=== PATIENT | female | born 1930 | race Caucasian/White ===

== ENCOUNTER 2018-07-16 20:24 | Inpatient (IN) ==
--- NOTE | 2018-07-16 21:34 | XRay Report ---
XR femur RT 2V routine CLINICAL HISTORY: Right thigh pain following fall. COMPARISON: None FINDINGS: Note is made of an acute nondisplaced fracture of the right femur. Fracture is subtrochant sacha in location and may extend into the lesser trochanter. No displaced component is identified. The re is no distal right femoral fracture. There is extensive vascular calcification. 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 There is patellofemoral c ompartment joint space narrowing. 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 IMPRESSION: Acute nondisplaced subtrochanteric fracture of the right femur that likely extends into t he lesser trochanter and through the femur. Electronically signed by: Seun Post M.D. 07/16/2018 9:33 PM
[2018-07-16] MEDS ORDERED: SODIUM CHLORIDE 0.9% 1000ML 1,000 ML IV SCH (22:00)
[2018-07-16 22:33] LABS: Basophils # (auto) 0.05 K/uL (0-0.2); Basophils % (auto) 0.5 %; Eosinophils # (auto) 0.06 K/uL (0-0.5); Eosinophils % (auto) 0.6 %; Hematocrit (blood only) 34.1 % (37-47); Hemoglobin 11.5 g/dL (12.0-16.0); Immature Granulocytes # (auto) 0.02 K/uL (0.00-0.02); Immature Granulocytes % (auto) 0.2 %; Lymphocytes # (auto) 1.11 K/uL (1.2-3.4); Lymphocytes % (auto) 10.5 %; Mean Corpuscular Hgb Conc 33.7 g/dL (32-36); Mean Corpuscular Volume 96.1 fL (80-100); Mean Platelet Volume 9.8 fL (7.4-10.4); Monocytes # (auto) 0.73 K/uL (0.11-0.59); Monocytes % (auto) 6.9 %; Neutrophils # (auto) 8.58 K/uL (1.4-6.5); Neutrophils % (auto) 81.3 %; Platelet Count 246 K/uL (130-400); RDW Coefficient of Variation 14.4 % (11.5-14.5); RDW Standard Deviation 51.3 fL (36.4-46.3); Red Blood Count 3.55 M/uL (4.2-5.4); White Blood Count 10.55 K/uL (4.8-10.8)
[2018-07-16 22:43] LABS: Partial Thromboplastin Ratio 0.9; Partial Thromboplastin Time 23.1 Seconds (21.0-31.0); Prothrombin Time 10.6 Seconds (9.0-12.0)
[2018-07-16 22:49] LABS: Calcium 9.1 mg/dl (8.5-10.1); Creatinine Clr Calc Pharmacy 32.4 ml/min; Est GFR (African American) 68.5; Est GFR (Non-African American) 59.1; Potassium 3.9 mmol/L (3.5-5.1)
--- NOTE | 2018-07-16 22:53 | XRay Report ---
XR chest 1V portable CLINICAL HISTORY: fall COMPARISON STUDY: No previous studies for comparison. FINDINGS: There is S-shaped scoliosis of the thoracolumbar spine. Mild cardiomegaly is noted without evidence for pulmonary edema. There is no consolidation. No pneumothorax or pleural effusion is noted . IMPRESSION: No acute cardiopulmonary findings. Electronically signed by: Seun Post M.D. 07/16/2018 10:51 PM
--- NOTE | 2018-07-16 22:55 | XRay Report ---
XR pelvis 1-2V routine CLINICAL HISTORY: fall COMPARISON: Right femur radiographs performed earlier tonight. FINDINGS: Note is again made of an acute nondisplaced subtrochanteric fracture of the right femur th at extends through the lesser trochanter. There is no acute proximal left femoral fracture. Sacroilia c joints and symphysis pubis are intact. Equivocal nondisplaced fractures of the left superior and in ferior pubic rami are noted. IMPRESSION: 1. Acute nondisplaced subtrochanteric fracture of the right femur that also extends through the lesse r trochanter. 2. Equivocal acute nondisplaced left inferior and superior pubic rami fractures. Electronically signed by: Seun Post M.D. 07/16/2018 10:54 PM
[2018-07-16 23:24] LABS: Appearance Urine Clear (Clear); Bilirubin Urine Negative (Negative); Blood Urine Negative (Negative); Color Urine Yellow; Glucose Urine UA Negative (Negative); Ketones Urine Trace (Negative); Leukocyte Esterase Urine Negative (Negative); Nitrite Urine Negative (Negative); Protein Urine Negative (Negative); Specific Gravity Urine 1.019 (1.000-1.030); Urobilinogen Urine Negative (Negative); pH Urine 5.5 (4.5-7.5)
[2018-07-16] MEDS ORDERED: SOD PHOSPHATE/SOD BIPHOSPHATE ENEMA 132 ML BTL PR PRN (23:37)
[2018-07-16] MEDS ORDERED: BISACODYL 10 MG SUPP PR PRN (23:37)
[2018-07-16] MEDS ORDERED: NALOXONE HCL 0.4 MG/1 ML VIAL/CARP IV PRN (23:37)
[2018-07-16] MEDS ORDERED: MAGNESIUM HYDROXIDE SUSP 30 ML UDC PO PRN (23:37)
[2018-07-16] MEDS ORDERED: ACETAMINOPHEN 325 MG TAB PO PRN (23:38)
[2018-07-16] MEDS ORDERED: POLYETHYLENE (MIRALAX) 17 GM PACK PO PRN (23:38)
[2018-07-16] MEDS ORDERED: ALUMINUM/MAGNESIUM SUSP 30 ML UDC PO PRN (23:38)
[2018-07-16] MEDS ORDERED: ONDANSETRON INJ 2 MG/ML 2 ML VIAL IV PRN (23:38)
[2018-07-16] MEDS ORDERED: OXYCODONE HCL IR 5 MG TAB (IMMEDIATE RELEASE) PO PRN (23:38)
[2018-07-16] MEDS ORDERED: MoRPHine SULFATE 4 MG/ML 1 ML CARP\\VIAL IV PRN (23:38)
--- NOTE | 2018-07-17 00:08 | History & Physical Report ---
Date of Service July 17, 2018 Assessment & Plan (1) Closed fracture of right hip: 88 y/o F who denies a significant history and does not take any medications. Presents following a mechanical fall onto her right side. Imaging obtained in the ER demonstrated an acute nondisplaced, subtrochanteric fracture of the right femur that also extends through the lesser trochanter and possibly acute nondisplaced left inferior and superior pubic rami fractures. The pt denies any symptoms preceding her fall such as lightheadedness or palpitations. The pt si admitted with a hip fracture protocol and will be evaluated by orthopedics - per history alone, her RCRI s 0.4%, however, she has a LBBB on EKG which has to be considered pathological until proven otherwise. We will therefore obtain an echo AM and if there are corresponding abnormalities, she would require evaluation by cardiology prior to proceeding to the OR. Additional assessment to follow results of her echocardiogram. Full code - SCDs Total time for this admit including review of labs, meds, imaging, records - discussion with pt and ER attending - 37 min Present on Admission?: Yes History of Present Illness Chief Complaint: Hp fracture Primary Care Provider: NO PCP 88 y/o F who denies a significant history and does not take any medications. Presents following a mechanical fall onto her right side. Imaging obtained in the ER demonstrated an acute nondisplaced, subtrochanteric fracture of the right femur that also extends through the lesser trochanter and possibly acute nondisplaced left inferior and superior pubic rami fractures. The pt denies any symptoms preceding her fall such as lightheadedness or palpitations. PMH: She denies a significant medical history - it is noted that she has a LBBB on EKG. Surgical: Cyst removal from breast Social: No history of smoking or drinking - she hails from [place] and is a graduate of [employer]. She is fully independent. Family: Father due to renal failure Mothers cause of is not known - history of dementia Allergies Allergy/AdvReac Type Severity Reaction Status Date / Time No Known Allergies Allergy Unverified 07/17/18 00:07 Home Medications Home Medications Medication Instructions Recorded Confirmed Type No Known Home Medications 07/17/18 07/17/18 History Past Med/Surg History Medical History Fall Family History Other Family history non-contributory Social History Feels Safe at Home: Yes Smoking Status: Never smoker Review of Systems Gen: Denies fevers, night sweats, rigors, fatigue, malaise, weight loss/gain ENT: Denies congestion, throat pain, hearing loss Eyes: Denies acute visual changes CV: Denies CP, palpitations Pulmonary: Denies SOB, cough, wheezing GI: Denies N/V, diarrhea, constipation Neuro: Denies acute or unilateral weakness, acute gait impairment, headache or acute visual changes Musculoskeletal: Pain in R hip and pelvis Endocrine: Denies polydipsia, polyuria Skin: Denies acute rashes or ulcers Physical Exam Vital Signs (Past 24 Hours): Last Vital Signs Temp 36.6 C 07/16/18 20:38 Pulse 83 07/16/18 22:56 Resp 18 07/16/18 22:56 BP 163/74 H 07/16/18 22:56 Pulse Ox 97 07/16/18 22:56 Physical Exam: General: AAO x 3, no distress ENT: No erythema or exudates, no thrush Eyes: BEN, EOMI Head and neck: Normocephalic, atraumatic, No JVD, neck is supple. Chest/heart: Nontender, S1,2, RRR, no murmurs, no gallops Lungs: CTAB, no wheezing or crackles Abdomen: Nontender, nondistended, BS+ Neuro: AAO x 3, speech is clear, no unilateral weakness or loss of sensation, coordination intact Musculoskeletal: Did not palpate the hip considering the imaging Skin: No acute rashes or ulcers Extremities: No clubbing, cyanosis, edema - pulses + (1) Closed fracture of right hip Encounter type: initial encounter Qualified Code(s): S72.001A - Fracture of unspecified part of neck of right femur, initial encounter for closed fracture
[2018-07-17] MEDS: D5W AND LACTATED RINGERS 1,000 ML IV SCH ×2 (01:39→17:15)
--- NOTE | 2018-07-17 02:01 | Emergency Department Note ---
Entered by Dima Forte acting as a scribe for Sachin Cho History of Present Illness General Chief complaint: Fall Time Seen by Provider: 07/16/18 21:41 Source: patient History of Present Illness Provider complaint: Fall Onset (ago): hour(s) (This afternoon) Location: lower extremity and right Radiation: non-radiation Pain Consistency: + constant Maximum Pain Intensity: 8 Relieved By: + none Associated symptoms: + denies other symptoms The patient is an 88 year old female who presents to the Emergency Room with complaints of constant right thigh pain following a mechanical fall that occurred this afternoon. Per the nursing note she rates the pain an 8/10. She states she was walking into her house when she made a misstep and her walking cane got stuck causing her to lose her balance and fall. She denies any loss of consciousness or head trauma. She also denies any other pain besides her right thigh pain. The patient is not on any blood thinners. Home Medications Home Medications Medication Instructions Recorded Confirmed Type No Known Home Medications 07/17/18 07/17/18 History Allergies Allergy/AdvReac Type Severity Reaction Status Date / Time No Known Allergies Allergy Unverified 07/17/18 00:07 Past Med/Surg History Medical History Fall Family History Other Family history non-contributory Social History Preferred Language: Spanish Communication Ability: Effective Crew Car Driver Required: No Beliefs That Will Affect Care: None Current Living Situation: Alone Other Information That Helps Us Care for You: No Feels Safe at Home: Yes Safety Concerns: Feels Safe At This Time Smoking Status: Never smoker Hx Alcohol Use: No Hx Substance Use: No Review of Systems See HPI for pertinent positives & negatives. and A total of 10 systems reviewed and were otherwise negative Physical Exam Vital Signs Vital Signs - 24 hr 07/16/18 20:38 07/16/18 22:56 07/17/18 00:24 Temperature 36.6 C Temperature Source Oral Sepsis Recent Fever Within 48 Hours No Sepsis New/Unexplained Change in Mental Status No Sepsis Action Taken by Nursing No Action Required Pulse Rate 90 Pulse Rate [Apical] 83 83 Respiratory Rate 18 18 18 Blood Pressure 192/79 H Blood Pressure [Right Arm] 163/74 H 157/69 H Blood Pressure Mean 116 Blood Pressure Mean [Right Arm] 103 98 Pulse Oximetry 95 97 97 Oxygen Delivery Method Room Air Room Air Room Air GENERAL: She is oriented to person, place, and time. She appears well-developed and well-nourished. She does not appear distressed. HENT: Exam performed. Head: Normocephalic and atraumatic. Right Ear: External ear normal. No mastoid tenderness. Left Ear: External ear normal. No mastoid tenderness. Mouth/Throat: The oropharynx is clear and moist. No trismus in the jaw. No dental abscesses or uvula swelling. No oropharyngeal exudate or tonsillar abscesses. EYES: Conjunctivae and EOM are normal. Pupils are equal, round, and reactive to light. Right eye exhibits no discharge. Left eye exhibits no discharge. No scleral icterus. NECK: Normal range of motion. Neck supple. No JVD present. No spinous process tenderness present. No carotid bruit present. No rigidity. No tracheal deviation and normal range of motion present. No Brudzinski's sign and no Kernig's sign noted. CV: Normal rate, regular rhythm, normal heart sounds and intact distal pulses. There is no peripheral edema. Palpable radial pulses bue. PULM/CHEST: Effort normal and breath sounds normal. No respiratory distress. No stridor. She has no wheezes. She has no rales. Chest Wall: She exhibits no tenderness. ABD: The abdomen is soft. Bowel sounds are normal. She has no distension. No mass is present. There is no tenderness. There is no rebound, no guarding, no Robbins's sign and no tenderness at McBurney's point. Rovsig negative MUSC/SKEL: There is no peripheral edema or deformity. Pain on palpation of the right femur. LYMPH: No cervical adenopathy. NEURO: She is alert and oriented to person, place, and time. No cranial nerve deficit or sensory deficit. GCS eye subscore is 4. GCS verbal subscore is 5. GCS motor subscore is 6. SKIN: Skin is warm and dry. She is not diaphoretic. PSYCH: She has a normal mood and affect. Her behavior is normal. Judgment and thought content normal. Procedures FAST Exam FAST Exam 1: Fluid in Morison's pouch: No Fluid in [place]en[place]: No Fluid around bladder, Transverse view: No Fluid around bladder, Sagittal view: No Fluid in Pericardial Sac: No Gross Wall Motion Abnormality: No Study normal for this patient: Yes Course 2149: Past medical records reviewed. The patient was evaluated in room C12B, and a complete history and physical examination were performed. 2325: Labs within normal limits. Imaging showed a subtrochanteric fracture of right femur and left sided pubic rami fracture. CT head was negative. Friends at bedside requesting she be seen by Dr. Hinds for orthopedics. I spoke to Dr. Gusman [facility] Hospitalist about the patient's case and he is going to accept her for further evaluation. Consultations Consultation #1: I spoke to Dr. Gusman [facility] Hospitalist about the patient's case and he is going to accept her for further evaluation. Time: 23:30 Administered Medications Acetaminophen (Tylenol) 650 mg PO Q6H PRN PRN Reason: MILD Pain (Scale 1,2,3) Stop: 08/15/18 23:37 Last Admin: 07/17/18 01:38 Dose: 650 mg Documented by: [id number] Sodium Chloride (Nss 1000ml) 1,000 mls @ 75 mls/hr IV .[id number] BOONE Stop: 07/17/18 11:19 Last Infusion: 07/17/18 01:39 Dose: 0 mls/hr Documented by: [id number] Admin: 07/17/18 00:15 Dose: 75 mls/hr Documented by: [id number] Dextrose/Lactated Ringer's (D5w And Lactated Ringers) 1,000 mls @ 80 mls/hr IV .[id number] BOONE Stop: 07/18/18 00:44 Last Admin: 07/17/18 01:39 Dose: 80 mls/hr Documented by: [id number] Medical Decision Making Medical Records Attestation: I reviewed the patient's medical records. Home Medications Current Medication List: was personally reviewed by me Laboratory Data Attestation: I reviewed the patient's lab results. Result diagrams: 07/16/18 22:17 07/16/18 22:17 Lab Results 07/16/18 07/16/18 07/16/18 Range/Units 22:17 22:17 22:17 WBC 10.55 (4.8-10.8) K/uL RBC 3.55 L (4.2-5.4) M/uL Hgb 11.5 L (12.0-16.0) g/dL Hct 34.1 L (37-47) % MCV 96.1 (80-100) fL MCH 32.4 (25-34) pg MCHC 33.7 (32-36) g/dL RDW Std Deviation 51.3 H (36.4-46.3) fL RDW Coeff of Simon 14.4 (11.5-14.5) % Plt Count 246 (130-400) K/uL MPV 9.8 (7.4-10.4) fL Immature Gran % (Auto) 0.2 % Neut % (Auto) 81.3 % Lymph % (Auto) 10.5 % Montgomery % (Auto) 6.9 % Eos % (Auto) 0.6 % Baso % (Auto) 0.5 % Immature Gran # (Auto) 0.02 (0.00-0.02) K/uL Neut # (Auto) 8.58 H (1.4-6.5) K/uL Lymph # (Auto) 1.11 L (1.2-3.4) K/uL Montgomery # (Auto) 0.73 H (0.11-0.59) K/uL Eos # (Auto) 0.06 (0-0.5) K/uL Baso # (Auto) 0.05 (0-0.2) K/uL PT 10.6 (9.0-12.0) Seconds INR 1.0 (0.9-1.1) APTT 23.1 (21.0-31.0) Seconds PTT Ratio 0.9 Sodium 140 (136-145) mmol/L Potassium 3.9 (3.5-5.1) mmol/L Chloride 107 (98-107) mmol/L Carbon Dioxide 28 (21-32) mmol/L Anion Gap 5.0 (3-11) BUN 20 H (7-18) mg/dl Creatinine 0.88 (0.6-1.2) mg/dl Est Cr Clr Drug Dosing 32.4 ml/min Est GFR ( Amer) 68.5 Est GFR (Non-Af Amer) 59.1 BUN/Creatinine Ratio 23.0 H (10-20) Glucose 133 H (70-99) mg/dl Calcium 9.1 (8.5-10.1) mg/dl Urine Color Urine Appearance (Clear) Urine pH (4.5-7.5) Ur Specific [place] (1.000-1.030) Urine Protein (Negative) Urine Glucose (UA) (Negative) Urine Ketones (Negative) Urine Blood (Negative) Urine Nitrite (Negative) Urine Bilirubin (Negative) Urine Urobilinogen (Negative) Ur Leukocyte Esterase (Negative) Blood Type Antibody Screen 07/16/18 07/16/18 Range/Units 22:17 22:54 WBC (4.8-10.8) K/uL RBC (4.2-5.4) M/uL Hgb (12.0-16.0) g/dL Hct (37-47) % MCV (80-100) fL MCH (25-34) pg MCHC (32-36) g/dL RDW Std Deviation (36.4-46.3) fL RDW Coeff of Simon (11.5-14.5) % Plt Count (130-400) K/uL MPV (7.4-10.4) fL Immature Gran % (Auto) % Neut % (Auto) % Lymph % (Auto) % Montgomery % (Auto) % Eos % (Auto) % Baso % (Auto) % Immature Gran # (Auto) (0.00-0.02) K/uL Neut # (Auto) (1.4-6.5) K/uL Lymph # (Auto) (1.2-3.4) K/uL Montgomery # (Auto) (0.11-0.59) K/uL Eos # (Auto) (0-0.5) K/uL Baso # (Auto) (0-0.2) K/uL PT (9.0-12.0) Seconds INR (0.9-1.1) APTT (21.0-31.0) Seconds PTT Ratio Sodium (136-145) mmol/L Potassium (3.5-5.1) mmol/L Chloride (98-107) mmol/L Carbon Dioxide (21-32) mmol/L Anion Gap (3-11) BUN (7-18) mg/dl Creatinine (0.6-1.2) mg/dl Est Cr Clr Drug Dosing ml/min Est GFR ( Amer) Est GFR (Non-Af Amer) BUN/Creatinine Ratio (10-20) Glucose (70-99) mg/dl Calcium (8.5-10.1) mg/dl Urine Color Yellow Urine Appearance Clear (Clear) Urine pH 5.5 (4.5-7.5) Ur Specific [place] 1.019 (1.000-1.030) Urine Protein Negative (Negative) Urine Glucose (UA) Negative (Negative) Urine Ketones Trace H (Negative) Urine Blood Negative (Negative) Urine Nitrite Negative (Negative) Urine Bilirubin Negative (Negative) Urine Urobilinogen Negative (Negative) Ur Leukocyte Esterase Negative (Negative) Blood Type A Negative Antibody Screen NEGATIVE Imaging Data Radiologist's Impression: Radiology results as stated below per my review and the radiologist's interpretation: XR chest 1V portable CLINICAL HISTORY: fall COMPARISON STUDY: No previous studies for comparison. FINDINGS: There is S-shaped scoliosis of the thoracolumbar spine. Mild cardiomegaly is noted without evidence for pulmonary edema. There is no consolidation. No pneumothorax or pleural effusion is noted. IMPRESSION: No acute cardiopulmonary findings. Electronically signed by: Seun Post M.D. 07/16/2018 10:51 PM XR pelvis 1-2V routine CLINICAL HISTORY: fall COMPARISON: Right femur radiographs performed earlier tonight. FINDINGS: Note is again made of an acute nondisplaced subtrochanteric fracture of the right femur that extends through the lesser trochanter. There is no acute proximal left femoral fracture. Sacroiliac joints and symphysis pubis are intact. Equivocal nondisplaced fractures of the left superior and inferior pubic rami are noted. IMPRESSION: 1. Acute nondisplaced subtrochanteric fracture of the right femur that also extends through the lesser trochanter. 2. Equivocal acute nondisplaced left inferior and superior pubic rami fractures. Electronically signed by: Seun Post M.D. 07/16/2018 10:54 PM XR femur RT 2V routine CLINICAL HISTORY: Right thigh pain following fall. COMPARISON: None FINDINGS: Note is made of an acute nondisplaced fracture of the right femur. Fracture is subtrochanteric in location and may extend into the lesser trochanter. No displaced component is identified. There is no distal right femoral fracture. There is extensive vascular calcification. There is chondrocalcinosis within the menisci of the right knee with moderate osteoarthritis. There is patellofemoral compartment joint space narrowing. 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 IMPRESSION: Acute nondisplaced subtrochanteric fracture of the right femur that likely extends into the lesser trochanter and through the femur. Electronically signed by: Seun Post M.D. 07/16/2018 9:[address] HEAD: No intracranial hemorrhage or skull fracture. Involutional changes with small vessel disease. Radiologist: Vernon Fox M.D. Study ready at 23:17 and initial results transmitted at 23:18 ECG Data Attestation: I personally reviewed and interpreted this ECG as follows: Indication: other (Fall) Rate (beats per minute): 85 Rhythm: normal sinus Findings: + other (IA 158, QRS 130, QTC 497, Sgarbosa negative, baseline wonder and artifact) and + LBBB Blood Pressure Blood Pressure Findings: Elevated blood pressure Blood Pressure Disposition: further management by hospitalist [facility] Narrative Labs within normal limits. Imaging showed a subtrochanteric fracture of right femur and left sided pubic rami fracture. CT head was negative. Friends at bedside requesting she be seen by Dr. Hinds for orthopedics. I spoke to Dr. Gusman - [facility] Hospitalist about the patient's case and he is going to accept her for further evaluation. Impression & Plan Closed fracture of right hip, Closed right femoral fracture Discharge Plan Visit Data *Final* Discharge Date/Time: 07/17/18 00:25 Chief Complaint: Fall ED Provider: Sachin Cho Discharge Problem: Closed fracture of right hip, Closed right femoral fracture Patient Disposition: Admitted As Inpatient Discharge Instructions Interventions: ED Discharge Assessment Last Done: 07/17/18 00:25 Discharge Problem: Closed fracture of right hip Qualifiers: Encounter type: initial encounter Qualified Code(s): S72.001A - Fracture of unspecified part of neck of right femur, initial encounter for closed fracture Closed right femoral fracture Qualifiers: Encounter type: initial encounter Femur location: subtrochanteric Fracture alignment: nondisplaced Qualified Code(s): S72.24XA - Nondisplaced subtrochanteric fracture of right femur, initial encounter for closed fracture The scribe's documentation has been prepared under my direction and personally reviewed by me in its entirety. I confirm that the note above accurately reflects all work, treatment, procedures, and medical decision making performed by me.
[2018-07-17] MEDS ORDERED: CEFAZOLIN 2000MG 2,000 MG/15 ML SYR IV SCH (06:00)
[2018-07-17] MEDS ORDERED: CEFAZOLIN 2000MG 2,000 MG/15 ML SYR IV ONE (06:11)
--- NOTE | 2018-07-17 07:01 | Anesthesiology Consultation ---
Date of Service July 17, 2018 Assessment & Plan (1) Encounter for pre-operative examination: Chart Review Chart Review: Pending: Refer to Additional Notes / Consult section and Patient NOT seen in Pre Admission Testing Patient found to have LBBB on EKG. Per hospitalist note upon admission last PM, it is pathologic until proven otherwise. Patient to have an echo done this morning prior to the OR. If echo fails to show any additional abnormalities, patient likely ok for surgery today. I spoke to the cardiopulmonary lab and asked that her echo be read first when the cardiologists arrive so we can take her to surgery as soon as possible. Consults Requested none NPO Date Last Intake of Fluids: 07/17/18 Time Last Intake of Fluids: 02:00 Last Intake of Fluids Comment: small sip with medications Date Last Intake of Solids: 07/16/18 History Surgery Operation Date: 07/17/18 07:00 Proposed Procedures p Intramedullary Yoni Femur Right - Artemio Leavitt MD Height/Weight Height: 5 ft 2 in Weight: 49.2 kg Allergies Allergy/AdvReac Type Severity Reaction Status Date / Time No Known Allergies Allergy Unverified 07/17/18 00:07 Medications Home Medications Medication Instructions Recorded Confirmed Last Taken No Known Home Medications 07/17/18 07/17/18 Unknown Active Medications Generic Name Dose Route Start Last Admin Trade Name Freq PRN Reason Stop Dose Admin Acetaminophen 650 mg 07/16/18 23:38 07/17/18 01:38 Tylenol PO 08/15/18 23:37 650 mg Q6H PRN Administration MILD Pain (Scale 1,2,3) Sodium Chloride 1,000 mls @ 75 mls/hr 07/16/18 22:00 07/17/18 01:39 Nss 1000ml IV 07/17/18 11:19 Infused .[id number] BOONE Infusion Dextrose/Lactated Ringer's 1,000 mls @ 80 mls/hr 07/16/18 23:45 07/17/18 05:35 D5w And Lactated Ringers IV 07/18/18 00:44 80 mls/hr .[id number] BOONE Infusion Past Medical History Medical History Fall Patient denies medical problems Scoliosis Past Family History Family History Other Family history non-contributory Past Surgical History Surgical History H/O removal of cyst breast cyst removal Social History Smoking Status: Never smoker Hx Alcohol Use: No Hx Substance Use: No Physical Exam Vital Signs Last Vital Signs Temp 36.7 C 07/17/18 01:30 Pulse 80 07/17/18 01:30 Resp 16 07/17/18 01:30 BP 167/94 H 07/17/18 01:30 Pulse Ox 99 07/17/18 01:30 Testing Electrocardiogram Date: 07/16/18 Findings: + NSR @ (85) and + LBBB Normal sinus rhythm Left bundle branch block Abnormal ECG No previous ECGs available Chest X-Ray Date: 07/16/18 COMPARISON STUDY: No previous studies for comparison. FINDINGS: There is S-shaped scoliosis of the thoracolumbar spine. Mild cardiomegaly is noted without evidence for pulmonary edema. There is no consolidation. No pneumothorax or pleural effusion is noted. IMPRESSION: No acute cardiopulmonary findings. Laboratory Results 07/16/18 22:17 07/16/18 22:17 Blood Type A Negative 07/16/18 22:17 Antibody Screen NEGATIVE 07/16/18 22:17 PT 10.6 Seconds (9.0-12.0) 07/16/18 22:17 INR 1.0 (0.9-1.1) 07/16/18 22:17 APTT 23.1 Seconds (21.0-31.0) 07/16/18 22:17 Urine Color Yellow 07/16/18 22:54 Urine Appearance Clear (Clear) 07/16/18 22:54 Urine pH 5.5 (4.5-7.5) 07/16/18 22:54 Ur Specific [place] 1.019 (1.000-1.030) 07/16/18 22:54 Urine Protein Negative (Negative) 07/16/18 22:54 Urine Glucose (UA) Negative (Negative) 07/16/18 22:54 Urine Ketones Trace (Negative) H 07/16/18 22:54 Urine Nitrite Negative (Negative) 07/16/18 22:54 Ur Leukocyte Esterase Negative (Negative) 07/16/18 22:54
--- NOTE | 2018-07-17 07:04 | CT Scan Report ---
HEAD CT NONCONTRAST CT DOSE: 614.27 mGy.cm HISTORY: fall TECHNIQUE: Multiaxial CT images of the head were performed without the use of intravenous contrast. A utomated exposure control was utilized for this study. A dose lowering technique was utilized adheri ng to the principles of ALARA. Comparison: None. Findings: The paranasal sinuses and mastoid air cells are clear. The calvarium and skull base are int act. There is no mass, hematoma, midline shift, acute infarct. White matter hypodensity is nonspecifi c but suggestive of microvascular ischemic change. The ventricles and sulci demonstrate mild age-rela tg involutional changes. Impression: No acute intracranial abnormality. Electronically signed by: Jesus Manuel Martinez M.D. 07/17/2018 7:03 AM
--- NOTE | 2018-07-17 07:39 | History and Physical Report ---
DATE OF ADMISSION: 07/16/2018 CHIEF COMPLAINT: Right hip pain. HISTORY OF PRESENT ILLNESS: The patient is a pleasant 88-year-old female who was coming home from dinner with a friend when she was walking into her house, tripped and fell onto her right side, sustaining a right peritrochanteric/subtrochanteric femur fracture with minimal displacement.She also has compression injury to the contralateral pubic rami. She denies any other problems. She denies any chest pain or shortness of breath prior to the fall. She has been living alone. She has been for about 16 years. PAST MEDICAL HISTORY: Remarkable for no medical problems. PAST SURGICAL HISTORY: Benign. HOME MEDICATIONS: None. ALLERGIES: None. SOCIAL HISTORY: Reveals that she lives alone. She was born in [place]. She has been here for roughly 50 years. She feels safe at home. She denies any tobacco or alcohol use. REVIEW OF SYSTEMS: Reveals no chest pain, shortness of breath, fever, chills, nausea, vomiting or headache. PHYSICAL EXAMINATION: HEENT: Without any trauma, some dry skin. Dentition, age-related changes. Vision is appropriate. NECK: Nontender. CHEST: Clear. HEART: Regular rate and rhythm. ABDOMEN: Soft, nontender. MUSCULOSKELETAL: Neurovascular check both upper and lower extremities normal. She has pain with any type of right leg movement. The pain is located between the hip joint and the mid thigh.The leg sits slightly externally rotated.Skin is healthy,pulses trace with good brisk capillary refill.Femoral and sciatic nerve function is good bilaterally. IMAGING DATA: Chest x-ray reveals no acute disease. Right pelvis and right femur x-ray revealed minimally displaced peritrochanteric/subtrochanteric femur fracture.Pubic rami noted. LABORATORY WORK: Reveals hematocrit in the 30s. PRP is in good ranges. PT/INR is appropriate. ASSESSMENT: A pleasant ,ambulatory 88-year-old female who is alert, oriented and remembers the event, recall things well with R brook/sub trochanteric femur fracture.She has no major issues with having surgery. She does not wish any heroic measures in the perioperative period. She does state she has a living will. I have not visually seen that. PLAN: Plan at this point in time is to obtain cardiac echo per hospitalist admission request and to proceed with surgery RAJIV today. At this point in time, she would not be any healthier than she is right now. Appropriate for surgery. ELENA
--- NOTE | 2018-07-17 09:34 | Cardiology Consultation ---
Date of Consultation July 17, 2018 Assessment & Plan (1) Left bundle branch block: 2. Preoperative cardiac evaluation 3. Right hip fracture Patient was admitted with a right hip fracture after suffering a mechanical fall at home. She was noted to have a left bundle branch block on EKG and cardiac clearance was requested prior to undergoing surgical repair of her fracture. The patient has no history of cardiovascular disease. She is physically active, achieving >4 METS, without anginal type symptoms. Her echo demonstrated low normal LV function, normal wall motion and no significant valvular heart disease. She is felt to be an acceptable risk to proceed with surgery without any additional cardiac testing/intervention. History of Present Illness Reason for Consultation: Left bundle branch block Attending Physician: Sol Buenrostro MD History of Present Illness Mrs. Garcia is an 88 year old female without significant medical history. She was admitted to [facility] on 07/16/18 after suffering a mechanical fall at home resulting in a right hip fracture. She was noted to have a LBBB on EKG and we were asked see the patient for preoperative cardiac evaluation. Patient is feeling well aside from some right leg/hip discomfort. She denies any prior cardiac history and does not recall ever being told of an abnormal EKG. She takes no medications on a regular basis and does not routinely receive medical care. She is very independent. She lives alone and performs all of her housework and cooking. She also climbs one flight of stairs multiple times per day. She denies any exertional chest pain or limiting dyspnea. She denies orthopnea, PND or edema. She also denies palpitations, lightheadedness, near syncope or syncope. No abnormal bleeding. ROS: 10 point ROS performed and otherwise negative unless stated in HPI. Social Hx: From [place]. , lives alone. Denies tobacco use. Drinks 1 glass of wine per day. No drug use. Surgical Hx: no major surgeries. Allergies Allergy/AdvReac Type Severity Reaction Status Date / Time No Known Allergies Allergy Unverified 07/17/18 00:07 Home Medications Home Medications Medication Instructions Recorded Confirmed Type No Known Home Medications 07/17/18 07/17/18 History Patient History Medical History Fall Patient denies medical problems Scoliosis Surgical History H/O removal of cyst breast cyst removal Family History Other Family history non-contributory Social History Communication Ability: Effective Beliefs That Will Affect Care: None marital status: / Current Living Situation: Alone Other Information That Helps Us Care for You: No Feels Safe at Home: Yes Safety Concerns: Feels Safe At This Time Smoking Status: Never smoker Hx Alcohol Use: No Hx Substance Use: No Physical Exam Vital Signs (Past 24 Hours): Last Vital Signs Temp 36.7 C 07/17/18 07:25 Pulse 81 07/17/18 07:25 Resp 16 07/17/18 07:25 BP 147/71 H 07/17/18 07:25 Pulse Ox 96 07/17/18 07:25 Physical Exam: General: No acute distress, comfortable. HEENT: Head is normal. PERRLA. EOMI. Sclerae anicteric. Ears, nose and throat unremarkable. Mucous membranes moist. Neck: Normal carotid upstrokes, no bruits. No appreciable JVD. Lungs: Clear to auscultation bilaterally without rales, rhonchi or wheezes. Cardiac: Regular rate and rhythm. S1-S2 normal. Grade 1/6 systolic murmur at the apex. Abdomen: Soft and nontender. Bowel sounds normal. No mass or organomegaly. No abdominal bruit. Extremities/vascular: Well perfused. No peripheral edema. Radial, DP and PT pulses 2+ bilaterally Skin: No rash or abnormal lesions. Normal turgor. Neurologic: Nonfocal Psychiatric: Affect appropriate. Alert and oriented. Results & Data Laboratory Results Laboratory Results - last 24 hr 07/16/18 07/16/18 07/16/18 22:17 22:17 22:17 WBC 10.55 RBC 3.55 L Hgb 11.5 L Hct 34.1 L MCV 96.1 MCH 32.4 MCHC 33.7 RDW Std Deviation 51.3 H RDW Coeff of Simon 14.4 Plt Count 246 MPV 9.8 Immature Gran % (Auto) 0.2 Neut % (Auto) 81.3 Lymph % (Auto) 10.5 [place] % (Auto) 6.9 Eos % (Auto) 0.6 Baso % (Auto) 0.5 Immature Gran # (Auto) 0.02 Neut # (Auto) 8.58 H Lymph # (Auto) 1.11 L [place] # (Auto) 0.73 H Eos # (Auto) 0.06 Baso # (Auto) 0.05 PT 10.6 INR 1.0 APTT 23.1 PTT Ratio 0.9 Sodium 140 Potassium 3.9 Chloride 107 Carbon Dioxide 28 Anion Gap 5.0 BUN 20 H Creatinine 0.88 Est Cr Clr Drug Dosing 32.4 Est GFR ( Amer) 68.5 Est GFR (Non-Af Amer) 59.1 BUN/Creatinine Ratio 23.0 H Glucose 133 H Calcium 9.1 Urine Color Urine Appearance Urine pH Ur Specific [place] Urine Protein Urine Glucose (UA) Urine Ketones Urine Blood Urine Nitrite Urine Bilirubin Urine Urobilinogen Ur Leukocyte Esterase Blood Type Antibody Screen 07/16/18 07/16/18 22:17 22:54 WBC RBC Hgb Hct MCV MCH MCHC RDW Std Deviation RDW Coeff of Simon Plt Count MPV Immature Gran % (Auto) Neut % (Auto) Lymph % (Auto) [place] % (Auto) Eos % (Auto) Baso % (Auto) Immature Gran # (Auto) Neut # (Auto) Lymph # (Auto) [place] # (Auto) Eos # (Auto) Baso # (Auto) PT INR APTT PTT Ratio Sodium Potassium Chloride Carbon Dioxide Anion Gap BUN Creatinine Est Cr Clr Drug Dosing Est GFR ( Amer) Est GFR (Non-Af Amer) BUN/Creatinine Ratio Glucose Calcium Urine Color Yellow Urine Appearance Clear Urine pH 5.5 Ur Specific [place] 1.019 Urine Protein Negative Urine Glucose (UA) Negative Urine Ketones Trace H Urine Blood Negative Urine Nitrite Negative Urine Bilirubin Negative Urine Urobilinogen Negative Ur Leukocyte Esterase Negative Blood Type A Negative Antibody Screen NEGATIVE Diagnostic Findings Echo 07/17/18: Normal LV size. Low normal LV function. EF 50-55%. Septal motion consistent with conduction abnormality. Moderate mitral regurgitation ECG Additional Comments: EKG 07/16/18: Left bundle branch block
[2018-07-17 10:39] LABS: Hematocrit (blood only) 31.5 % (37-47); Hemoglobin 10.7 g/dL (12.0-16.0); Mean Corpuscular Volume 94.9 fL (80-100); Mean Platelet Volume 9.5 fL (7.4-10.4); Platelet Count 215 K/uL (130-400); RDW Coefficient of Variation 14.4 % (11.5-14.5); RDW Standard Deviation 49.7 fL (36.4-46.3); Red Blood Count 3.32 M/uL (4.2-5.4); White Blood Count 8.44 K/uL (4.8-10.8)
[2018-07-17] MEDS ORDERED: fentaNYL citrate 100 MCG/2 ML VIAL ONE (10:39)
[2018-07-17] MEDS ORDERED: BUPIVACAINE/EPINEPHRINE 0.5% MPF 1:200,000 30 ML VIAL ONE (10:56)
--- NOTE | 2018-07-17 11:09 | Anesthesiology Consultation ---
Date of Service July 17, 2018 Assessment & Plan Chart Review Chart Review: Acceptable Risk for Surgery and Patient NOT seen in Pre Admission Testing Consults Requested none ASA ASA3 Proposed Anesthesia Anesthesia Type: MAC Spinal NPO Date Last Intake of Fluids: 07/17/18 Time Last Intake of Fluids: 02:00 Last Intake of Fluids Comment: small sip with medications Date Last Intake of Solids: 07/16/18 History Surgery Operation Date: 07/17/18 07:00 Proposed Procedures p Intramedullary Yoni Femur Right - Artemio Leavitt MD Height/Weight Height: 5 ft 2 in Weight: 49.2 kg Allergies Allergy/AdvReac Type Severity Reaction Status Date / Time No Known Allergies Allergy Unverified 07/17/18 00:07 Medications Home Medications Medication Instructions Recorded Confirmed Last Taken No Known Home Medications 07/17/18 07/17/18 Unknown Active Medications Generic Name Dose Route Start Last Admin Trade Name Freq PRN Reason Stop Dose Admin Acetaminophen 650 mg 07/16/18 23:38 07/17/18 01:38 Tylenol PO 08/15/18 23:37 650 mg Q6H PRN Administration MILD Pain (Scale 1,2,3) Sodium Chloride 1,000 mls @ 75 mls/hr 07/16/18 22:00 07/17/18 01:39 Nss 1000ml IV 07/17/18 11:19 Infused .[id number] BOONE Infusion Dextrose/Lactated Ringer's 1,000 mls @ 80 mls/hr 07/16/18 23:45 07/17/18 05:35 D5w And Lactated Ringers IV 07/18/18 00:44 80 mls/hr .[id number] BOONE Infusion Past Medical History Medical History Fall Patient denies medical problems Scoliosis Past Family History Family History Other Family history non-contributory Past Surgical History Surgical History H/O removal of cyst breast cyst removal Social History Smoking Status: Never smoker Hx Alcohol Use: No Hx Substance Use: No Physical Exam Vital Signs Last Vital Signs Temp 36.7 C 07/17/18 10:47 Pulse 75 07/17/18 10:47 Resp 18 07/17/18 10:47 BP 173/81 H 07/17/18 10:47 Pulse Ox 96 07/17/18 10:47 Testing Laboratory Results 07/17/18 10:25 Blood Type A Negative 07/16/18 22:17 Antibody Screen NEGATIVE 07/16/18 22:17 PT 10.6 Seconds (9.0-12.0) 07/16/18 22:17 INR 1.0 (0.9-1.1) 07/16/18 22:17 APTT 23.1 Seconds (21.0-31.0) 07/16/18 22:17 Urine Color Yellow 07/16/18 22:54 Urine Appearance Clear (Clear) 07/16/18 22:54 Urine pH 5.5 (4.5-7.5) 07/16/18 22:54 Ur Specific [place] 1.019 (1.000-1.030) 07/16/18 22:54 Urine Protein Negative (Negative) 07/16/18 22:54 Urine Glucose (UA) Negative (Negative) 07/16/18 22:54 Urine Ketones Trace (Negative) H 07/16/18 22:54 Urine Nitrite Negative (Negative) 07/16/18 22:54 Ur Leukocyte Esterase Negative (Negative) 07/16/18 22:54
--- NOTE | 2018-07-17 11:10 | History & Physical Bridge Note ---
Date of Service July 17, 2018 History & Physical Bridge Note I have examined the patient, reviewed the History & Physical and in the interval since the performance of the History & Physical I have noted the following changes of clinical significance: no changes noted.
[2018-07-17 11:22] LABS: BUN Creatinine Ratio 24.7 (10-20); Calcium 8.3 mg/dl (8.5-10.1); Creatinine Clr Calc Pharmacy 49.7 ml/min; Est GFR (Non-African American) 81.1; Magnesium 1.6 mg/dl (1.8-2.4); Potassium 3.7 mmol/L (3.5-5.1)
[2018-07-17] MEDS ORDERED: KETAMINE HCL INJ 50 MG/ML 10 ML VIAL ONE (11:25)
[2018-07-17] MEDS ORDERED: METOCLOPRAMIDE HCL INJ 5 MG/ML 2 ML VIAL ONE (11:58)
[2018-07-17] MEDS ORDERED: ONDANSETRON INJ 2 MG/ML 2 ML VIAL ONE (11:58)
[2018-07-17] MEDS ORDERED: PROPOFOL IV EMULSION 10 MG/ML 20 ML VIAL IV ONE (11:58)
[2018-07-17] MEDS ORDERED: ePHEDrine sulfate 50 MG/ML SYR ONE (12:07)
--- NOTE | 2018-07-17 12:24 | Operative Report ---
Post Operative Report Pre & Post Diagnosis Operation Date: 07/17/18 07:00 Pre-Op Diagnosis: Right brook/sub trochanteric femur fracture Post-Op Diagnosis: Right brook/sub trochanteric femur fracture Procedure Operation Date: 07/17/18 07:00 Actual Procedures p Intramedullary Yoni Femur Right(Right) - Artemio Leavitt MD Surgeon Artemio Leavitt MD Computer Engineer Cinthia Wooten PA-C Estimated Blood Loss 10 Findings Consistent with Post-Op Diagnosis Specimens none Complications none Disposition Accompanied Patient To Recovery: Yes Disposition: Recovery Room Description of Procedure I was present for the entire case providing general assistance. Please see Dr. Leavitt procedure note for specifics. I attest to the content of the Intraoperative Record and any orders documented therein. Any exceptions are noted below.
--- NOTE | 2018-07-17 12:24 | Post Operative Brief Note ---
Immediate Post Op Note v1 Date of Surgery July 17, 2018 Pre & Post Diagnosis Operation Date: 07/17/18 07:00 Pre-Op Diagnosis: Right brook/sub trochanteric femur fracture Post-Op Diagnosis: Right brook/sub trochanteric femur fracture Procedure Operation Date: 07/17/18 07:00 Actual Procedures p Intramedullary Yoni Femur Right(Right) - Artemio Leavitt MD Surgeon Artemio Leavitt MD Mild Disabilities Teacher faraz Estimated Blood Loss 100 Findings Consistent with Post-Op Diagnosis Drains Andersen Catheter (PATIENT ARRIVED TO OR WITH ANDERSEN CATH IN PLACE DRAINING CLEAR Y ELLOW URINE)
--- NOTE | 2018-07-17 12:51 | Fluoroscopy Report ---
FL hip RT 2-3V CLINICAL HISTORY: RT TROCH NAIL COMPARISON STUDY: 07/16/2018 FLUOROSCOPY TIME: 73 seconds. NUMBER OF FLUOROSCOPIC IMAGES: 6 FINDINGS: 6 intraoperative fluoroscopic images demonstrate internal fixation of a proximal right femo ral fracture with a trochanteric nail and interlocking intramedullary nathaly. Alignment appears near-zain tomic. IMPRESSION: Intraoperative fluoroscopic spot images obtained during internal fixation of a proximal right femoral fracture Electronically signed by: Ruben Escobar M.D. 07/17/2018 12:49 PM
--- NOTE | 2018-07-17 13:08 | XRay Report ---
XR hip RT 1V CLINICAL HISTORY: Post-Operative implant position COMPARISON STUDY: Pelvis and right hip 07/16/2018. FINDINGS: The patient is status post internal fixation of a proximal right femoral fracture with a pr oximal intramedullary nathaly and interlocking femoral neck pin. The heart appears intact. Alignment appe ars anatomic. Skin mikayla are in place. IMPRESSION: Status post internal fixation of a proximal right femoral fracture. The hardware appears intact. Electronically signed by: Jesus Manuel Martinez M.D. 07/17/2018 1:06 PM
[2018-07-17] MEDS ORDERED: ATROPINE SULFATE 0.1 MG/ML 10ML SYR IV PRN (13:19)
[2018-07-17] MEDS ORDERED: ePHEDrine sulfate 50 MG/ML AMP IV PRN (13:19)
[2018-07-17] MEDS ORDERED: fentaNYL citrate 100 MCG/2 ML VIAL IV PRN (13:19)
--- NOTE | 2018-07-17 13:19 | Anesthesiology Progress Note ---
Date of Service July 17, 2018 Anesthesia Post Procedure Vital Signs Vital Signs: Temp Pulse Pulse Pulse Resp BP BP 07/17/18 12:51 37.0 C 73 17 127/56 L 07/17/18 12:50 82 15 07/17/18 12:45 64 16 149/59 H 07/17/18 12:40 68 14 154/55 H 07/17/18 12:35 63 10 L 139/57 L 07/17/18 12:31 81 18 139/65 07/17/18 12:30 69 12 07/17/18 12:28 36.5 C 59 L 60 9 L 140/52 L 140/52 L 07/17/18 10:47 36.7 C 75 18 07/17/18 07:25 36.7 C 81 16 147/71 H 07/17/18 01:30 36.7 C 80 16 167/94 H 07/17/18 00:55 07/17/18 00:50 81 19 07/17/18 00:45 88 19 07/17/18 00:40 86 25 H 07/17/18 00:35 80 15 07/17/18 00:30 84 17 07/17/18 00:26 86 18 07/17/18 00:25 89 20 157/69 H 07/17/18 00:24 83 18 07/17/18 00:20 81 20 07/17/18 00:15 88 24 07/17/18 00:10 87 27 H 07/17/18 00:05 90 22 07/17/18 00:00 90 31 H 07/16/18 23:55 90 24 07/16/18 23:50 92 H 24 07/16/18 23:45 87 23 07/16/18 23:40 87 22 07/16/18 23:35 82 21 07/16/18 23:30 81 23 07/16/18 23:25 85 24 07/16/18 23:20 82 19 07/16/18 23:19 79 07/16/18 23:05 81 18 07/16/18 23:00 80 10 L 07/16/18 22:57 82 15 163/74 H 07/16/18 22:56 83 18 07/16/18 22:55 84 12 07/16/18 22:50 90 18 07/16/18 22:45 83 15 07/16/18 22:40 82 16 07/16/18 22:35 83 19 07/16/18 22:30 89 19 07/16/18 22:25 90 25 H 07/16/18 22:20 88 18 07/16/18 22:15 83 18 07/16/18 22:10 84 17 07/16/18 22:05 86 17 07/16/18 22:00 85 22 07/16/18 21:55 89 21 07/16/18 21:50 94 H 22 07/16/18 21:45 80 20 07/16/18 21:40 83 19 07/16/18 21:35 83 22 07/16/18 21:30 80 21 07/16/18 21:25 76 18 07/16/18 21:20 80 16 07/16/18 20:38 36.6 C 90 18 192/79 H BP Pulse Ox 07/17/18 12:51 98 07/17/18 12:50 95 07/17/18 12:45 97 07/17/18 12:40 97 07/17/18 12:35 98 07/17/18 12:31 97 07/17/18 12:30 97 07/17/18 12:28 97 07/17/18 10:47 173/81 H 96 07/17/18 07:25 96 07/17/18 01:30 99 07/17/18 00:55 83 L 07/17/18 00:50 92 07/17/18 00:45 93 07/17/18 00:40 89 L 07/17/18 00:35 92 07/17/18 00:30 92 07/17/18 00:26 94 07/17/18 00:25 95 07/17/18 00:24 157/69 H 97 07/17/18 00:20 92 07/17/18 00:15 90 07/17/18 00:10 90 07/17/18 00:05 97 07/17/18 00:00 93 07/16/18 23:55 92 07/16/18 23:50 96 07/16/18 23:45 96 07/16/18 23:40 98 07/16/18 23:35 96 07/16/18 23:30 98 07/16/18 23:25 97 07/16/18 23:20 97 07/16/18 23:19 07/16/18 23:05 93 07/16/18 23:00 97 07/16/18 22:57 97 07/16/18 22:56 163/74 H 97 07/16/18 22:55 97 07/16/18 22:50 97 07/16/18 22:45 96 07/16/18 22:40 97 07/16/18 22:35 98 07/16/18 22:30 07/16/18 22:25 07/16/18 22:20 07/16/18 22:15 07/16/18 22:10 07/16/18 22:05 96 07/16/18 22:00 96 07/16/18 21:55 95 07/16/18 21:50 97 07/16/18 21:45 97 07/16/18 21:40 97 07/16/18 21:35 98 07/16/18 21:30 97 07/16/18 21:25 97 07/16/18 21:20 96 07/16/18 20:38 95 Pain Intensity Right Hip: Pain Intensity: 4 Notes Mental Status: alert / awake / arousable Patient Amnestic to Procedure: Yes Nausea / Vomiting: adequately controlled Pain: adequately controlled Airway Patency, RR, SpO2: stable & adequate BP & HR: stable & adequate Hydration State: stable & adequate Anesthetic Complications: no major complications apparent and Pt Satisfied with anesthetic care
[2018-07-17] MEDS ORDERED: NALOXONE HCL 0.4 MG/1 ML VIAL/CARP IV PRN (13:34)
[2018-07-17] MEDS ORDERED: ACETAMINOPHEN 325 MG TAB PO PRN (13:34)
[2018-07-17] MEDS ORDERED: BISACODYL 10 MG SUPP PR PRN (13:34)
[2018-07-17] MEDS ORDERED: SOD PHOSPHATE/SOD BIPHOSPHATE ENEMA 132 ML BTL PR PRN (13:34)
[2018-07-17] MEDS ORDERED: MAGNESIUM HYDROXIDE SUSP 30 ML UDC PO PRN (13:34)
[2018-07-17] MEDS ORDERED: SODIUM CHLORIDE 0.9% 1000ML 1,000 ML IV SCH (13:45)
--- NOTE | 2018-07-17 14:27 | Operative Report ---
DATE OF OPERATION: 07/17/2018 SURGEON: Artemio Leavitt MD TRADE MARK ATTORNEY: Nica Wooten. PREOPERATIVE DIAGNOSIS: Nondisplaced reverse subtrochanteric/peritrochanteric femur fracture, right hip. POSTOPERATIVE DIAGNOSIS: Nondisplaced reverse subtrochanteric/peritrochanteric femur fracture, right hip. OPERATION PERFORMED: ORIF with locked troch nail, intermediate length. PERIOPERATIVE SITUATION: Medically cleared female who slipped and fell walking into her house, sustained this injury. At this point in time, she is prepared for surgery. She understands the risks and consequences. DESCRIPTION OF PROCEDURE: The patient was appropriately identified, site verified, consent verified. Antibiotics were as being given. The right lower extremity was prepped and draped in usual routine fashion after spinal anesthesia was induced. The fracture was nondisplaced. It was kept outweigh. She was carefully appropriately padded. Good images were obtained from AP and lateral positions. After prepping and draping, the guidewire was then appropriately positioned in the tip of the trochanter and then passed down the canal. Excellent position was obtained on AP and lateral. The tip of the trochanter was then opened with clincher awl. Reaming was then carried out with a solid reamer and then once this was done, the guidepin passed and the nathaly placed over that without any difficulty. It was positioned at appropriate level. Once it was at the right superior level, the stab incision was made for the locking bolt in the femoral neck and head. This was placed in anatomic position slightly low to midline and slightly midline to posterior on the lateral. Excellent position was obtained, it was a 95 locking bolt proximally. It was a helical nail. It should be mentioned that the guide pin was passed, recognized in appropriate position and overreamed down to 95. Once it was in position, the proximal lock took place. There was no problem with that. Once that was in place, the distal bolt was then placed with it being measured at 40 mm after appropriate drill hole made distally. It locked into position well. It was verified to be in and contained in the nail in both the AP and lateral views. The procedure was then terminated. All instruments and fluid removed. The wound was irrigated and closed with 0 Vicryl and stainless steel clips. Appropriate dressing applied. The patient transferred to recovery room in satisfactory condition having tolerated the procedure well. ESTIMATED BLOOD LOSS: Roughly 100 mL. DEEP VENOUS THROMBOSIS PROPHYLAXIS: Per medicine. SUMMARY OF IMPLANTS: A size 11 troch nail, cannulated 11 x 130 mm. The helical blade was 11 x 95 mm. The locking bolt was 40 mm. I attest to the content of the Intraoperative Record and any orders documented therein. Any exception s are noted below.
--- NOTE | 2018-07-17 15:08 | Progress Note ---
DATE: 07/17/2018 SUBJECTIVE: Postop check status post locked proximal and distal troch nail, right peritrochanteric/subtrochanteric femur fracture. The patient is sitting up in bed eating lunch. She denies any chest pain, shortness of breath, fever, chills, nausea, vomiting or headache. OBJECTIVE: Vital signs are stable. She is afebrile. Neurovascular check femoral sciatic nerve is normal. Wound dressing clean, dry and intact. Postop x-rays look excellent. ASSESSMENT: Doing well. Continue with postop care pathway. We will Hep-Lock IV fluids. We will sit her up to a chair. If she does well with that, she can have the Soares taken out. Can be weightbearing as tolerated on the right leg. PT, OT tomorrow.
[2018-07-17] MEDS: ACETAMINOPHEN 500 MG TAB PO SCH ×2 (17:12→21:14)
--- NOTE | 2018-07-17 17:34 | Hospitalist Progress Note ---
Date of Service July 17, 2018 Assessment & Plan (1) Closed fracture of right hip: - Presented following a mechanical fall at home; has acute nondisplaced subtrochanteric fracture of the right femur that extends through lesser trochanter. - Ortho consulted, s/p ORIF with locked troch nail today. - Pain control with Tylenol 1 gm q8hr scheduled; morphine and oxycodone prn. - DVT ppx -- will likely start Coumadin tomorrow. - IS q1hr WA. - Will need PT/OT evaluation. (2) Pubic ramus fracture: - Imaging showed possible acute nondisplaced left inferior and superior pubic rami fractures. - Ortho consulted. (3) LBBB (left bundle branch block): - Had new LBBB on EKG at admission. - Echo showed normal systolic function, no wall motion abnormalities. - Cardiology consulted, was cleared pre-operatively. (4) Anemia: - Hemoglobin trending down -- likely related to bleeding in setting of acute fracture. - Monitor CBC closely. (5) Electrolyte abnormality: - Mag level 1.6 - ordered mag sulfate 2 gm IV. - Monitor level in AM. (6) DVT prophylaxis: - Holding post procedure. Dispo: Med/surg for PT/OT evaluation. Supervising Physician Co-Signing Physician Notes PA Supervision Note: I did not personally see or examine the patient today, but I verified all hoskins points of DOC Olsno's assessment and plan with the following exceptions/additions: None Subjective Pt. is doing well overall. Has mild pain in R hip following surgery. Has pedro in place. Last BM was yesterday. Review of Systems All systems reviewed & are unremarkable except as noted in HPI & below Constitutional: no fever, no chills, no fatigue and no weakness Respiratory: no cough and no dyspnea Cardiovascular: no chest pain, no palpitations, no syncope and no edema Gastrointestinal: no abdominal pain, no nausea and no constipation Genitourinary (Female): no difficulty urinating Musculoskeletal: + joint pain (Right hip) Integumentary: no non-healing lesions Allergy / Immunological: no rash Physical Exam Vital Signs (Past 24 Hours): Last Vital Signs Temp 36.5 C 07/17/18 16:34 Pulse 81 07/17/18 16:34 Resp 18 07/17/18 16:34 BP 138/69 07/17/18 16:34 Pulse Ox 96 07/17/18 16:34 Physical Exam: General: Resting comfortably in no apparent distress; A&OX3 HEENT: NC/AT; PERRLA with EOMI; [place] conjunctiva, MMM. Neck: Supple and nontender Cardiac: RRR Lungs: CTA bilaterally Abdomen: Bowel normoactive X 4; Nontender to palpation Extremities: Warm. No edema present Neuro: No focal weakness Skin: No rash Results & Data Laboratory Results 07/17/18 07/17/18 07/16/18 Range/Units 10:25 10:25 22:54 WBC 8.44 (4.8-10.8) K/uL RBC 3.32 L (4.2-5.4) M/uL Hgb 10.7 L (12.0-16.0) g/dL Hct 31.5 L (37-47) % MCV 94.9 (80-100) fL MCH 32.2 (25-34) pg MCHC 34.0 (32-36) g/dL RDW Std Deviation 49.7 H (36.4-46.3) fL RDW Coeff of Simon 14.4 (11.5-14.5) % Plt Count 215 (130-400) K/uL MPV 9.5 (7.4-10.4) fL Immature Gran % (Auto) % Neut % (Auto) % Lymph % (Auto) % [place] % (Auto) % Eos % (Auto) % Baso % (Auto) % Immature Gran # (Auto) (0.00-0.02) K/uL Neut # (Auto) (1.4-6.5) K/uL Lymph # (Auto) (1.2-3.4) K/uL [place] # (Auto) (0.11-0.59) K/uL Eos # (Auto) (0-0.5) K/uL Baso # (Auto) (0-0.2) K/uL PT (9.0-12.0) Seconds INR (0.9-1.1) APTT (21.0-31.0) Seconds PTT Ratio Sodium 140 (136-145) mmol/L Potassium 3.7 (3.5-5.1) mmol/L Chloride 108 H (98-107) mmol/L Carbon Dioxide 29 (21-32) mmol/L Anion Gap 3.0 (3-11) BUN 15 (7-18) mg/dl Creatinine 0.62 (0.6-1.2) mg/dl Est Cr Clr Drug Dosing 49.7 ml/min Est GFR ( Amer) 94.0 Est GFR (Non-Af Amer) 81.1 BUN/Creatinine Ratio 24.7 H (10-20) Glucose 123 H (70-99) mg/dl Calcium 8.3 L (8.5-10.1) mg/dl Magnesium 1.6 L (1.8-2.4) mg/dl Urine Color Yellow Urine Appearance Clear (Clear) Urine pH 5.5 (4.5-7.5) Ur Specific [place] 1.019 (1.000-1.030) Urine Protein Negative (Negative) Urine Glucose (UA) Negative (Negative) Urine Ketones Trace H (Negative) Urine Blood Negative (Negative) Urine Nitrite Negative (Negative) Urine Bilirubin Negative (Negative) Urine Urobilinogen Negative (Negative) Ur Leukocyte Esterase Negative (Negative) Blood Type Antibody Screen 07/16/18 07/16/18 07/16/18 Range/Units 22:17 22:17 22:17 WBC (4.8-10.8) K/uL RBC (4.2-5.4) M/uL Hgb (12.0-16.0) g/dL Hct (37-47) % MCV (80-100) fL MCH (25-34) pg MCHC (32-36) g/dL RDW Std Deviation (36.4-46.3) fL RDW Coeff of Simon (11.5-14.5) % Plt Count (130-400) K/uL MPV (7.4-10.4) fL Immature Gran % (Auto) % Neut % (Auto) % Lymph % (Auto) % [place] % (Auto) % Eos % (Auto) % Baso % (Auto) % Immature Gran # (Auto) (0.00-0.02) K/uL Neut # (Auto) (1.4-6.5) K/uL Lymph # (Auto) (1.2-3.4) K/uL [place] # (Auto) (0.11-0.59) K/uL Eos # (Auto) (0-0.5) K/uL Baso # (Auto) (0-0.2) K/uL PT 10.6 (9.0-12.0) Seconds INR 1.0 (0.9-1.1) APTT 23.1 (21.0-31.0) Seconds PTT Ratio 0.9 Sodium 140 (136-145) mmol/L Potassium 3.9 (3.5-5.1) mmol/L Chloride 107 (98-107) mmol/L Carbon Dioxide 28 (21-32) mmol/L Anion Gap 5.0 (3-11) BUN 20 H (7-18) mg/dl Creatinine 0.88 (0.6-1.2) mg/dl Est Cr Clr Drug Dosing 32.4 ml/min Est GFR ( Amer) 68.5 Est GFR (Non-Af Amer) 59.1 BUN/Creatinine Ratio 23.0 H (10-20) Glucose 133 H (70-99) mg/dl Calcium 9.1 (8.5-10.1) mg/dl Magnesium (1.8-2.4) mg/dl Urine Color Urine Appearance (Clear) Urine pH (4.5-7.5) Ur Specific [place] (1.000-1.030) Urine Protein (Negative) Urine Glucose (UA) (Negative) Urine Ketones (Negative) Urine Blood (Negative) Urine Nitrite (Negative) Urine Bilirubin (Negative) Urine Urobilinogen (Negative) Ur Leukocyte Esterase (Negative) Blood Type A Negative Antibody Screen NEGATIVE 07/16/18 Range/Units 22:17 WBC 10.55 (4.8-10.8) K/uL RBC 3.55 L (4.2-5.4) M/uL Hgb 11.5 L (12.0-16.0) g/dL Hct 34.1 L (37-47) % MCV 96.1 (80-100) fL MCH 32.4 (25-34) pg MCHC 33.7 (32-36) g/dL RDW Std Deviation 51.3 H (36.4-46.3) fL RDW Coeff of Simon 14.4 (11.5-14.5) % Plt Count 246 (130-400) K/uL MPV 9.8 (7.4-10.4) fL Immature Gran % (Auto) 0.2 % Neut % (Auto) 81.3 % Lymph % (Auto) 10.5 % [place] % (Auto) 6.9 % Eos % (Auto) 0.6 % Baso % (Auto) 0.5 % Immature Gran # (Auto) 0.02 (0.00-0.02) K/uL Neut # (Auto) 8.58 H (1.4-6.5) K/uL Lymph # (Auto) 1.11 L (1.2-3.4) K/uL [place] # (Auto) 0.73 H (0.11-0.59) K/uL Eos # (Auto) 0.06 (0-0.5) K/uL Baso # (Auto) 0.05 (0-0.2) K/uL PT (9.0-12.0) Seconds INR (0.9-1.1) APTT (21.0-31.0) Seconds PTT Ratio Sodium (136-145) mmol/L Potassium (3.5-5.1) mmol/L Chloride (98-107) mmol/L Carbon Dioxide (21-32) mmol/L Anion Gap (3-11) BUN (7-18) mg/dl Creatinine (0.6-1.2) mg/dl Est Cr Clr Drug Dosing ml/min Est GFR ( Amer) Est GFR (Non-Af Amer) BUN/Creatinine Ratio (10-20) Glucose (70-99) mg/dl Calcium (8.5-10.1) mg/dl Magnesium (1.8-2.4) mg/dl Urine Color Urine Appearance (Clear) Urine pH (4.5-7.5) Ur Specific [place] (1.000-1.030) Urine Protein (Negative) Urine Glucose (UA) (Negative) Urine Ketones (Negative) Urine Blood (Negative) Urine Nitrite (Negative) Urine Bilirubin (Negative) Urine Urobilinogen (Negative) Ur Leukocyte Esterase (Negative) Blood Type Antibody Screen (1) Closed fracture of right hip Encounter type: initial encounter Qualified Code(s): S72.001A - Fracture of unspecified part of neck of right femur, initial encounter for closed fracture
[2018-07-17] MEDS: MAGNESIUM SULFATE / D5W 1 GM/100 ML BAG IV SCH ×2 (18:57→20:07)
[2018-07-17] MEDS: CEFAZOLIN 2000MG 2,000 MG/15 ML SYR IV SCH (19:04)
[2018-07-17] MEDS: DOCUSATE SODIUM/SENNA 50/8.6MG TAB PO SCH (20:07)
[2018-07-17] MEDS ORDERED: DOCUSATE SODIUM/SENNA 50/8.6MG TAB PO SCH (21:00)
[2018-07-17] MEDS ORDERED: WARFARIN SOD 5 MG TAB PO ONE (22:00)
[2018-07-18] MEDS: CEFAZOLIN 2000MG 2,000 MG/15 ML SYR IV SCH (03:24)
[2018-07-18] MEDS: ACETAMINOPHEN 500 MG TAB PO SCH ×3 (05:58→21:28)
[2018-07-18 06:18] LABS: Basophils # (auto) 0.02 K/uL (0-0.2); Basophils % (auto) 0.2 %; Eosinophils % (auto) 1.1 %; Hematocrit (blood only) 27.1 % (37-47); Hemoglobin 9.3 g/dL (12.0-16.0); Immature Granulocytes # (auto) 0.01 K/uL (0.00-0.02); Immature Granulocytes % (auto) 0.1 %; Lymphocytes # (auto) 0.96 K/uL (1.2-3.4); Mean Corpuscular Hgb Conc 34.3 g/dL (32-36); Mean Corpuscular Volume 94.8 fL (80-100); Mean Platelet Volume 9.4 fL (7.4-10.4); Monocytes # (auto) 0.95 K/uL (0.11-0.59); Monocytes % (auto) 10.9 %; Neutrophils # (auto) 6.68 K/uL (1.4-6.5); Neutrophils % (auto) 76.7 %; Platelet Count 180 K/uL (130-400); RDW Coefficient of Variation 14.7 % (11.5-14.5); RDW Standard Deviation 50.5 fL (36.4-46.3); Red Blood Count 2.86 M/uL (4.2-5.4); White Blood Count 8.72 K/uL (4.8-10.8)
[2018-07-18 06:27] LABS: INR 1.1 (0.9-1.1); Prothrombin Time 11.3 Seconds (9.0-12.0)
[2018-07-18 06:41] LABS: BUN Creatinine Ratio 23.8 (10-20); Calcium 7.9 mg/dl (8.5-10.1); Creatinine Clr Calc Pharmacy 45.9 ml/min; Est GFR (African American) 91.6
--- NOTE | 2018-07-18 09:57 | Progress Note ---
DATE: 07/18/2018 Postop day #1 status post ORIF of peritrochanteric/subtrochanteric right femur fracture. Also has pubic ramus compression fracture on the left side. She is sitting up in bed with dangling on to side of the bed with her breakfast in front of her. She states that her pain is well managed. She is only using Tylenol. She notes that she feels better than yesterday, but still has difficulty putting weight on her leg, which would be expected. Vital signs are stable. She is afebrile. Hematocrit is stable in the 27 range. I do not expect her to lose any more blood at this point in time. I see no indication for transfusion as her blood pressure is stable. Wound dressing is clean, dry and intact. Calves nontender. Abdomen soft, nontender. Neurovascular check, femoral sciatic nerve is normal. Postop x-rays look excellent. ASSESSMENT: Doing well. Continue with postoperative care pathway. Discontinue Soares to minimize the risk of infection. Use a bedside commode if cannot get to the bathroom. Okay for discharge from orthopaedic perspective. Continue with discharge plans per care managers. MTDD
[2018-07-18] MEDS: ORTHO WARFARIN NOMOGRAM SCH (11:27)
--- NOTE | 2018-07-18 12:18 | Hospitalist Progress Note ---
Date of Service July 18, 2018 Assessment & Plan (1) Closed fracture of right hip: - Presented following a mechanical fall at home; has an acute nondisplaced subtrochanteric fracture of the right femur that extends through lesser trochanter. - Ortho consulted, s/p ORIF with locked troch nail on 07/17, POD#1. - Pain control with Tylenol 1 gm q8hr scheduled; Morphine and Oxycodone prn. - DVT ppx with Coumadin -- sliding scale ordered with pharmacy management. - PT/OT evaluation - discharge to [facility] pending placement. (2) Pubic ramus fracture: - Imaging showed possible acute nondisplaced left inferior and superior pubic rami fractures. - Ortho consulted. (3) LBBB (left bundle branch block): - Had new LBBB on EKG at admission. - Echo showed normal systolic function, no wall motion abnormalities. - Cardiology consulted, cleared pre-operatively. (4) Anemia: - Hemoglobin trending down -- likely related to bleeding in setting of acute fracture and intra-op blood loss. - Monitor CBC closely. (5) Electrolyte abnormality: - No replacement required. (6) DVT prophylaxis: - Started Coumadin per ortho team. Dispo: Med/surg, discharge to [facility] on Friday pending placement. Supervising Physician Co-Signing Physician Notes DOC Supervision Note: I did not personally see or examine the patient today, but I verified all hoskins points of DOC Olson's assessment and plan with the following exceptions/additions: None Subjective Pt. is POD#1 ORIF locked troch nail, intermediate length. She is doing well overall -- has mild pain in hip with ambulation, denies pain at rest. Soares was removed, voiding without difficulty. Denies chest pain, SOB, constipation, N/V. Plan for placement at [facility] pending acceptance. Review of Systems All systems reviewed & are unremarkable except as noted in HPI & below Constitutional: no fever, no chills, no fatigue and no weakness Respiratory: no cough and no dyspnea Cardiovascular: no chest pain, no palpitations and no edema Gastrointestinal: no abdominal pain, no nausea and no constipation Genitourinary (Female): no difficulty urinating Musculoskeletal: + joint pain (Right hip) Integumentary: no non-healing lesions Allergy / Immunological: no rash Physical Exam Vital Signs (Past 24 Hours): Last Vital Signs Temp 36.6 C 07/18/18 07:05 Pulse 85 07/18/18 07:05 Resp 16 07/18/18 07:05 BP 125/52 L 07/18/18 07:05 Pulse Ox 96 07/18/18 11:35 Physical Exam: General: Resting comfortably in no apparent distress; A&OX3 HEENT: NC/AT; PERRLA with EOMI; [place] conjunctiva, MMM. Neck: Supple and nontender Cardiac: RRR Lungs: CTA bilaterally Abdomen: Bowel normoactive X 4; Nontender to palpation Extremities: Warm. No edema present. Right hip with dressing in place. Neuro: No focal weakness Skin: No rash Results & Data Laboratory Results 07/18/18 07/18/18 07/18/18 Range/Units 05:52 05:52 05:52 WBC 8.72 (4.8-10.8) K/uL RBC 2.86 L (4.2-5.4) M/uL Hgb 9.3 L (12.0-16.0) g/dL Hct 27.1 L (37-47) % MCV 94.8 (80-100) fL MCH 32.5 (25-34) pg MCHC 34.3 (32-36) g/dL RDW Std Deviation 50.5 H (36.4-46.3) fL RDW Coeff of Simon 14.7 H (11.5-14.5) % Plt Count 180 (130-400) K/uL MPV 9.4 (7.4-10.4) fL Immature Gran % (Auto) 0.1 % Neut % (Auto) 76.7 % Lymph % (Auto) 11.0 % [place] % (Auto) 10.9 % Eos % (Auto) 1.1 % Baso % (Auto) 0.2 % Immature Gran # (Auto) 0.01 (0.00-0.02) K/uL Neut # (Auto) 6.68 H (1.4-6.5) K/uL Lymph # (Auto) 0.96 L (1.2-3.4) K/uL [place] # (Auto) 0.95 H (0.11-0.59) K/uL Eos # (Auto) 0.10 (0-0.5) K/uL Baso # (Auto) 0.02 (0-0.2) K/uL PT 11.3 (9.0-12.0) Seconds INR 1.1 (0.9-1.1) Sodium 138 (136-145) mmol/L Potassium 4.0 (3.5-5.1) mmol/L Chloride 107 (98-107) mmol/L Carbon Dioxide 28 (21-32) mmol/L Anion Gap 3.0 (3-11) BUN 16 (7-18) mg/dl Creatinine 0.67 (0.6-1.2) mg/dl Est Cr Clr Drug Dosing 45.9 ml/min Est GFR ( Amer) 91.6 Est GFR (Non-Af Amer) 79.0 BUN/Creatinine Ratio 23.8 H (10-20) Glucose 117 H (70-99) mg/dl Calcium 7.9 L (8.5-10.1) mg/dl Magnesium 2.0 (1.8-2.4) mg/dl (1) Closed fracture of right hip Encounter type: initial encounter Qualified Code(s): S72.001A - Fracture of unspecified part of neck of right femur, initial encounter for closed fracture
[2018-07-18] MEDS ORDERED: WARFARIN SOD 5 MG TAB PO SCH (16:00)
[2018-07-18] MEDS: DOCUSATE SODIUM/SENNA 50/8.6MG TAB PO SCH (20:32)
[2018-07-19] MEDS: ACETAMINOPHEN 500 MG TAB PO SCH ×3 (06:37→21:44)
[2018-07-19 06:45] LABS: Basophils # (auto) 0.02 K/uL (0-0.2); Basophils % (auto) 0.2 %; Eosinophils # (auto) 0.14 K/uL (0-0.5); Eosinophils % (auto) 1.3 %; Hematocrit (blood only) 29.6 % (37-47); Hemoglobin 10.3 g/dL (12.0-16.0); Immature Granulocytes # (auto) 0.02 K/uL (0.00-0.02); Immature Granulocytes % (auto) 0.2 %; Lymphocytes # (auto) 1.62 K/uL (1.2-3.4); Lymphocytes % (auto) 15.5 %; Mean Corpuscular Hgb Conc 34.8 g/dL (32-36); Mean Corpuscular Volume 94.9 fL (80-100); Mean Platelet Volume 9.6 fL (7.4-10.4); Monocytes # (auto) 1.04 K/uL (0.11-0.59); Neutrophils # (auto) 7.58 K/uL (1.4-6.5); Neutrophils % (auto) 72.8 %; Platelet Count 196 K/uL (130-400); Red Blood Count 3.12 M/uL (4.2-5.4); White Blood Count 10.42 K/uL (4.8-10.8)
[2018-07-19 06:53] LABS: INR 1.5 (0.9-1.1); Prothrombin Time 15.2 Seconds (9.0-12.0)
--- NOTE | 2018-07-19 09:44 | Progress Note ---
DATE: 07/19/2018 SUBJECTIVE: Postop day #2 status post locked trochanteric nail for brook/subtrochanteric femur fracture. At this point time, the patient is doing well, sitting up at the bedside in the chair, eating breakfast and reading a book. She notes that she is very comfortable sitting at rest. Only has pain when she tries to use her hip abductors, quad and put weight on her leg. She denies any chest pain, shortness of breath, fever, chills, nausea, vomiting or headache. She is able to get up to the bathroom, bedside commode with assist of two. She does require the walker as well. OBJECTIVE: Vital signs are stable. She is afebrile. Neurovascular check, femoral-sciatic nerve is normal. Wound dressing is changed. The wound is clean and dry. There is no active bleeding. No major swelling, bruising as expected. LABORATORY DATA: Hematocrit stable at 29.6. INR is 1.5. ASSESSMENT AND PLAN: Overall, doing well status post open reduction and internal fixation of complex proximal femur fracture, minimally displaced. At this point in time, continue to weightbear as tolerated. Continue to use walker. Continue to have deep vein thrombosis prophylaxis, pulmonary embolism prophylaxis with Coumadin. Keep INR at 1.8-2.2 range. Do not go above that. Keep pressure dressing on the wound to assist with any potential anticoagulation ooze. Weightbearing as tolerated in right leg. Able to be discharged from my standpoint at any time. Awaiting placement issues with care management. Follow up with us in roughly 2 weeks. ELENA
[2018-07-19] MEDS: ORTHO WARFARIN NOMOGRAM SCH (10:42)
--- NOTE | 2018-07-19 12:36 | Hospitalist Progress Note ---
Date of Service July 19, 2018 Assessment & Plan (1) Closed fracture of right hip: - Presented following a mechanical fall at home; has an acute nondisplaced subtrochanteric fracture of the right femur that extends through lesser trochanter. - Ortho consulted, s/p ORIF with locked troch nail on 07/17, POD#2. - Pain control with Tylenol 1 gm q8hr scheduled; Morphine and Oxycodone prn. - DVT ppx with Coumadin -- sliding scale ordered with pharmacy management. - PT/OT evaluation - discharge to [facility] pending placement. (2) Pubic ramus fracture: - Imaging showed possible acute nondisplaced left inferior and superior pubic rami fractures. - Ortho consulted. (3) LBBB (left bundle branch block): - Had new LBBB on EKG at admission. - Echo showed normal systolic function, no wall motion abnormalities. - Cardiology consulted, cleared pre-operatively. (4) Anemia: - Hemoglobin is below baseline -- likely related to bleeding in setting of acute fracture and intra-op blood loss. - Monitor CBC closely. (5) Breast lesion: - Developed right breast lesion with discharge ~3-4 months ago. - No h/o breast cancer; did have biopsy of left breast lesion >30 years ago. - Most recent mammogram was >10 years ago. - Will need outpatient evaluation following resolution of acute issues. (6) Electrolyte abnormality: - No replacement required. (7) DVT prophylaxis: - Coumadin per ortho team. Dispo: Med/surg, discharge to [facility] pending placement. Supervising Physician Co-Signing Physician Notes Attending Attestation: Chart reviewed, care plan d/w DOC Bradshaw. I agree w/ the hoskins components of her documentation. s/p right hip ORIF. cont DVT proph with coumadin. pt with CKD stage 3 but creatinine is stable. agree w/ outpatient w/u for breast issue if patient desires. dispo planning. Jeremías Huffman MD Subjective Pt. is doing well overall. She worked with physical therapy, did not have significant pain. Denies chest pain, SOB, urinary retention, constipation. Pt. does have right breast discharge -- has been an ongoing problem for ~3-4 months. Pt. has been applying a bandaid to area. Denies h/o breast cancer. Did have biopsy of left breast mass >30 years ago, was negative. Last mammogram was >10 years ago. She plans to follow up for evaluation after resolution of acute i ssues and recovery in the post op period. Review of Systems All systems reviewed & are unremarkable except as noted in HPI & below Constitutional: no fever, no chills, no fatigue, no weakness and no anorexia Respiratory: no cough, no dyspnea and no wheezing Cardiovascular: no chest pain, no palpitations, no lightheadedness and no edema Gastrointestinal: no abdominal pain, no nausea and no constipation Genitourinary (Female): no difficulty urinating Musculoskeletal: no joint pain Integumentary: + breast skin changes (Discharge noted from right breast. ) Allergy / Immunological: no rash Physical Exam Vital Signs (Past 24 Hours): Last Vital Signs Temp 36.8 C 07/19/18 06:31 Pulse 93 H 07/19/18 06:31 Resp 16 07/19/18 06:31 BP 139/72 07/19/18 06:31 Pulse Ox 96 07/19/18 06:31 Physical Exam: General: Resting comfortably in no apparent distress; A&OX3 HEENT: NC/AT; PERRLA with EOMI; [place] conjunctiva, MMM. Neck: Supple and nontender Cardiac: RRR Lungs: CTA bilaterally Abdomen: Bowel normoactive X 4; Nontender to palpation Extremities: Warm. No edema present Neuro: No focal weakness Skin: No rash; bandaid over right breast lesion, did not remove on exam today. Located centrally near areola region. Results & Data Laboratory Results 07/19/18 07/19/18 Range/Units 06:30 06:30 WBC 10.42 (4.8-10.8) K/uL RBC 3.12 L (4.2-5.4) M/uL Hgb 10.3 L (12.0-16.0) g/dL Hct 29.6 L (37-47) % MCV 94.9 (80-100) fL MCH 33.0 (25-34) pg MCHC 34.8 (32-36) g/dL RDW Std Deviation 52.0 H (36.4-46.3) fL RDW Coeff of Simon 15.0 H (11.5-14.5) % Plt Count 196 (130-400) K/uL MPV 9.6 (7.4-10.4) fL Immature Gran % (Auto) 0.2 % Neut % (Auto) 72.8 % Lymph % (Auto) 15.5 % [place] % (Auto) 10.0 % Eos % (Auto) 1.3 % Baso % (Auto) 0.2 % Immature Gran # (Auto) 0.02 (0.00-0.02) K/uL Neut # (Auto) 7.58 H (1.4-6.5) K/uL Lymph # (Auto) 1.62 (1.2-3.4) K/uL [place] # (Auto) 1.04 H (0.11-0.59) K/uL Eos # (Auto) 0.14 (0-0.5) K/uL Baso # (Auto) 0.02 (0-0.2) K/uL PT 15.2 H (9.0-12.0) Seconds INR 1.5 H (0.9-1.1) (1) Closed fracture of right hip Encounter type: initial encounter Qualified Code(s): S72.001A - Fracture of unspecified part of neck of right femur, initial encounter for closed fracture
[2018-07-19] MEDS ORDERED: WARFARIN SOD 3 MG TAB PO SCH (16:00)
[2018-07-19] MEDS: DOCUSATE SODIUM/SENNA 50/8.6MG TAB PO SCH (21:44)
[2018-07-20] MEDS: ACETAMINOPHEN 500 MG TAB PO SCH ×3 (05:41→21:45)
[2018-07-20 07:09] LABS: INR 2.1 (0.9-1.1); Prothrombin Time 20.6 Seconds (9.0-12.0)
--- NOTE | 2018-07-20 07:35 | Progress Note ---
DATE: 07/20/2018 Via electronic rounds, the patient did well overnight and at this point in time can be discharged from orthopedic perspective. INR is 2.1. Suggest 0.5 mg of Coumadin today. Repeat INR on Friday. It if is in the 1.8-2.2 range, keep on 0.5 mg, otherwise, adjust accordingly. Check INR once a week. Keep INR less than 2.5.
--- NOTE | 2018-07-20 15:45 | Hospitalist Progress Note ---
Date of Service July 20, 2018 Assessment & Plan (1) Closed fracture of right hip: - Presented following a mechanical fall at home; has an acute nondisplaced subtrochanteric fracture of the right femur that extends through lesser trochanter. - S/P ORIF with troch nail on 07/17 - Pain control with Tylenol TID; with Oxycodone PRN for breakthrough - DVT Prophylaxis - Coumadin -- Planning on continuing Coumadin 0.5 mg daily with adjustments as necessary - recommend less than 2.5 INR - PT/OT evaluations - anticipating D/C to [facility] - Orthopedics following - cleared from their perspective (2) Pubic ramus fracture: - Imaging showed possible acute nondisplaced left inferior and superior pubic rami fractures - conservative measures with pain control (3) LBBB (left bundle branch block): - Had new LBBB on EKG at admission; rather active without ACS symptoms - Echo showed normal systolic function, no wall motion abnormalities. - Cardiology consulted, cleared pre-operatively; no invasive testing is warranted at this time but could be routinely monitored as outpatient (4) Anemia: - Hemoglobin is below baseline but stable -- likely related to bleeding in setting of acute fracture and intra-op blood loss. - Monitor CBC (5) Breast lesion: - Developed right breast lesion with discharge ~3-4 months ago. - No H/O breast cancer; did have biopsy of left breast lesion >30 years ago. - Most recent mammogram was >10 years ago. - Will need outpatient evaluation following resolution of acute issues. (6) DVT prophylaxis: - Coumadin per ortho team. Dispo: Await insurance auth; medically and orthopedically suitable for discharge pending disposition; family anticipates needing transport arranged on D/C Subjective Reports her hip is doing the best it has been today. States she is able to walk and do therapy a little bit better than yesterday. States pain is controlled with Tylenol alone She is tolerating a diet and verbalizes no other complaints today. Constitutional: no fever and no chills Ear, Nose, Mouth, Throat: no sore throat and no dysphagia Respiratory: no cough and no dyspnea Cardiovascular: no chest pain and no edema Gastrointestinal: no abdominal pain, no nausea, no vomiting, no constipation and no diarrhea/loose stools Genitourinary (Female): no dysuria Musculoskeletal: + joint pain (controlled hip pain) Integumentary: + breast skin changes (Discharge noted from right breast. ) Neurologic: no tingling and no numbness Physical Exam Vital Signs (Past 24 Hours): Last Vital Signs Temp 36.6 C 07/20/18 15:02 Pulse 82 07/20/18 15:02 Resp 16 07/20/18 15:02 BP 145/69 H 07/20/18 15:02 Pulse Ox 97 07/20/18 15:02 Constitutional: well developed and well nourished; no acute distress and not ill appearing Eyes: + anicteric sclerae Neck: normal visual inspection and trachea midline Respiratory: normal respiratory effort, lungs clear to auscultation + respiratory distress Cardiovascular: Rate/Rhythm: regular rate and regular rhythm Gastrointestinal (Abdomen): Inspection/Auscultation: normal bowel sounds Percussion/Palpation: abdomen soft; abdomen nontender Musculoskeletal: Head/Neck/Chest: normocephalic and head atraumatic Dressing C/D/I to R hip (1) Closed fracture of right hip Encounter type: initial encounter Qualified Code(s): S72.001A - Fracture of unspecified part of neck of right femur, initial encounter for closed fracture
[2018-07-20] MEDS: WARFARIN SOD 0.5 MG TAB PO SCH (15:55)
[2018-07-20] MEDS: DOCUSATE SODIUM/SENNA 50/8.6MG TAB PO SCH (21:45)
[2018-07-21] MEDS: ACETAMINOPHEN 500 MG TAB PO SCH ×3 (05:27→21:32)
[2018-07-21 05:40] LABS: Hematocrit (blood only) 27.3 % (37-47); Hemoglobin 9.2 g/dL (12.0-16.0); Mean Corpuscular Hgb Conc 33.7 g/dL (32-36); Mean Corpuscular Volume 94.5 fL (80-100); Mean Platelet Volume 9.2 fL (7.4-10.4); Platelet Count 242 K/uL (130-400); RDW Coefficient of Variation 14.6 % (11.5-14.5); RDW Standard Deviation 50.7 fL (36.4-46.3); Red Blood Count 2.89 M/uL (4.2-5.4); White Blood Count 6.42 K/uL (4.8-10.8)
[2018-07-21 05:47] LABS: INR 1.9 (0.9-1.1)
[2018-07-21 06:07] LABS: BUN Creatinine Ratio 44.2 (10-20); Calcium 8.2 mg/dl (8.5-10.1); Creatinine Clr Calc Pharmacy 59.2 ml/min; Est GFR (African American) 99.6; Est GFR (Non-African American) 85.9; Potassium 4.1 mmol/L (3.5-5.1)
[2018-07-21] MEDS: WARFARIN SOD 0.5 MG TAB PO SCH (15:36)
--- NOTE | 2018-07-21 18:17 | Hospitalist Progress Note ---
Date of Service July 21, 2018 Assessment & Plan (1) Closed fracture of right hip: - Presented following a mechanical fall at home; has an acute nondisplaced subtrochanteric fracture of the right femur that extends through lesser trochanter. - S/P ORIF with troch nail on 07/17 - Pain control with Tylenol TID; with Oxycodone PRN for breakthrough - DVT Prophylaxis - Coumadin -- Planning on continuing Coumadin 0.5 mg daily with adjustments as necessary - recommend INR range of (1.8-2.2) - PT/OT evaluations - appreciate ongoing visits to promote mobility and strength; awaiting rehab placement - Orthopedics following - cleared from their perspective; F/U scheduled for staple removal; WBAT (2) Pubic ramus fracture: - Imaging showed possible acute nondisplaced left inferior and superior pubic rami fractures - conservative measures with pain control (3) LBBB (left bundle branch block): - Had new LBBB on EKG at admission; rather active without ACS symptoms - Echo showed normal systolic function, no wall motion abnormalities. - Cardiology consulted, cleared pre-operatively; no invasive testing is warranted at this time but could be routinely monitored as outpatient (4) Anemia: - Hemoglobin is below baseline but stable -- likely related to bleeding in setting of acute fracture and intra-op blood loss. - Monitor CBC (5) Breast lesion: - Developed right breast lesion with discharge ~3-4 months ago. - No H/O breast cancer; did have biopsy of left breast lesion >30 years ago. - Most recent mammogram was >10 years ago. - Will need outpatient evaluation following resolution of acute issues. (6) DVT prophylaxis: - Coumadin per ortho team. Dispo: Pre-peer to peer denied for [facility]; Awaiting bed availability at SNF, medically and orthopedically suitable for discharge pending disposition; family anticipates needing transport arranged on D/C Subjective Patient is doing well today and motivated to continue to work towards her goal of returning home. Awaiting determination for rehab. Tolerating diet without issue. Pain staying under control. Verbalizes no complaints. Constitutional: no fever and no chills Respiratory: no cough and no dyspnea Cardiovascular: no chest pain, no palpitations and no edema Gastrointestinal: no abdominal pain, no nausea, no vomiting, no constipation and no diarrhea/loose stools Genitourinary (Female): no dysuria Musculoskeletal: + joint pain (controlled hip pain) Integumentary: + breast skin changes (Discharge noted from right breast. ) Physical Exam Vital Signs (Past 24 Hours): Last Vital Signs Temp 36.6 C 07/21/18 15:01 Pulse 84 07/21/18 15:01 Resp 16 07/21/18 15:01 BP 147/69 H 07/21/18 15:01 Pulse Ox 96 07/21/18 15:01 Constitutional: well developed and well nourished; no acute distress and not ill appearing Eyes: + anicteric sclerae Neck: normal visual inspection and trachea midline Respiratory: normal respiratory effort, lungs clear to auscultation Cardiovascular: Rate/Rhythm: regular rate and regular rhythm Gastrointestinal (Abdomen): Inspection/Auscultation: normal bowel sounds Percussion/Palpation: abdomen soft; abdomen nontender Musculoskeletal: Head/Neck/Chest: normocephalic and head atraumatic dressing applied to R hip C/D/I (1) Closed fracture of right hip Encounter type: initial encounter Qualified Code(s): S72.001A - Fracture of unspecified part of neck of right femur, initial encounter for closed fracture
[2018-07-21] MEDS: DOCUSATE SODIUM/SENNA 50/8.6MG TAB PO SCH (21:32)
[2018-07-22] MEDS: ACETAMINOPHEN 500 MG TAB PO SCH ×2 (05:41→14:28)
[2018-07-22 07:36] LABS: Basophils # (auto) 0.04 K/uL (0-0.2); Basophils % (auto) 0.7 %; Eosinophils # (auto) 0.22 K/uL (0-0.5); Eosinophils % (auto) 3.7 %; Hemoglobin 8.9 g/dL (12.0-16.0); Immature Granulocytes # (auto) 0.01 K/uL (0.00-0.02); Immature Granulocytes % (auto) 0.2 %; Lymphocytes # (auto) 1.33 K/uL (1.2-3.4); Lymphocytes % (auto) 22.4 %; Mean Corpuscular Volume 95.4 fL (80-100); Mean Platelet Volume 9.1 fL (7.4-10.4); Monocytes # (auto) 0.57 K/uL (0.11-0.59); Monocytes % (auto) 9.6 %; Neutrophils # (auto) 3.78 K/uL (1.4-6.5); Neutrophils % (auto) 63.4 %; Platelet Count 259 K/uL (130-400); RDW Coefficient of Variation 14.7 % (11.5-14.5); RDW Standard Deviation 51.6 fL (36.4-46.3); Red Blood Count 2.83 M/uL (4.2-5.4); White Blood Count 5.95 K/uL (4.8-10.8)
[2018-07-22 08:18] LABS: Acanthocytes 1+
[2018-07-22] MEDS: WARFARIN SOD 0.5 MG TAB PO SCH (17:00)
--- NOTE | 2018-07-22 19:02 | Discharge Summary ---
Date of Service July 22, 2018 Admission HPI Per Admitting Provider 88 y/o F who denies a significant history and does not take any medications. Presents following a mechanical fall onto her right side. Imaging obtained in the ER demonstrated an acute nondisplaced, subtrochanteric fracture of the right femur that also extends through the lesser trochanter and possibly acute nondisplaced left inferior and superior pubic rami fractures. The pt denies any symptoms preceding her fall such as lightheadedness or palpitations. PMH: She denies a significant medical history - it is noted that she has a LBBB on EKG. Surgical: Cyst removal from breast Social: No history of smoking or drinking - she hails from [place] and is a graduate of [employer]. She is fully independent. Family: Father due to renal failure Mothers cause of is not known - history of dementia Principal Diagnosis R Hip Fracture S/P ORIF/Nailing Discharge Exam Constitutional WD/WN, vitals as above Eyes + anicteric sclerae ENMT Ears: no hearing impairment Mouth: + poor dentition Neck normal visual inspection and trachea midline Respiratory normal respiratory effort, lungs clear to auscultation Cardiovascular RRR, no murmur, no edema Gastrointestinal (Abdomen) Inspection/Auscultation: normal bowel sounds Percussion/Palpation: abdomen soft; abdomen nontender Musculoskeletal Head/Neck/Chest: normocephalic, head atraumatic and neck supple Skin no rashes, warm and dry Neurologic moves all extremities Psychiatric A+Ox3, euthymic affect Discharge Data Allergies Allergy/AdvReac Type Severity Reaction Status Date / Time No Known Allergies Allergy Unverified 07/17/18 00:07 Consultations 07/16/18 23:37 Consult Case Management - Discharge Planning Routine 07/17/18 01:47 Consult Orthopedic Surgery Routine 07/17/18 13:34 Consult Case Management - Discharge Planning Routine Procedures Performed Operation Date: 07/17/18 07:00 Actual Procedures p Intramedullary Yoni Femur Right(Right) - Artemio Leavitt MD Ordered Studies 07/16/18 21:56 CT head/brain wo con Stat 07/17/18 07:00 FL hip RT 2-3V Routine 07/17/18 11:00 FL fluoroscopy <1hr Routine Hospital Course (1) Closed fracture of right hip: - Presented following a mechanical fall at home; has an acute nondisplaced subtrochanteric fracture of the right femur that extends through lesser trochanter; S/P ORIF with troch nail on 07/17 - Pain control with Tylenol TID; with Oxycodone PRN for breakthrough - DVT Prophylaxis - Coumadin 0.5 mg daily with adjustments as necessary - recommend INR range of (1.8-2.2) - Orthopedics following - F/U scheduled for staple removal; WBAT (2) Pubic ramus fracture: - Imaging showed possible acute nondisplaced left inferior and superior pubic rami fractures - conservative measures with pain control (3) LBBB (left bundle branch block): - Had new LBBB on EKG at admission; rather active without ACS symptoms - Echo showed normal systolic function, no wall motion abnormalities. - Cardiology consulted, cleared pre-operatively; no invasive testing is warranted at this time but could be routinely monitored as outpatient (4) Anemia: - Hemoglobin is below baseline but stable -- likely related to bleeding in setting of acute fracture and intra-op blood loss. Currently at 8.9 and asymptomatic (5) Breast lesion: - Developed right breast lesion with discharge ~3-4 months ago. - No H/O breast cancer; did have biopsy of left breast lesion >30 years ago. - Most recent mammogram was >10 years ago. - Will need outpatient evaluation following resolution of acute issues. Total Time Total Time Spent Total Time Spent (In Minutes): Greater than 30 minutes Discharge Plan Discharge Items Patient Disposition: Transfer [facility] Reason For Visit: HIP FRACTURE Discharge Diagnosis: Right hip s/p Open reduction internal fixation Condition: Good Discharge Goals: Decrease discomfort, Improve disease control and Improve function Activity: Per 'Additional Instructions' section Lifting: Wait until after follow-up appointment Bathing: Keep incision dry Exercise/Sports: Wait until after follow-up appointment Driving/Machine Use Comment: No driving Weightbearing: Right weightbearing Weightbearing Comment: as tolerated Non-emergency contact: Primary Care Provider and Surgeon Call non-emergency contact if: you have any medication questions, your pain is not controlled, your temperature is above 101, your wound has increased redness, your wound has increased drainage and your wound pain has increased Follow-up/Referrals: Artemio Leavitt MD [Surgeon] - PCP,NO [Primary Care Provider] - Diet: Heart Healthy Addtl Provider Instructions: DIET: * Resume previous diet. MEDICATIONS: * Please take your prescriptions as instructed on your medication discharge instructions listed above. * If concerns develop, call your physician's office at . SPECIAL CARE INSTRUCTIONS: * Ice/Elevate as instructed. * Keep dressing clean, dry, intact. * Your surgical extremity may be discolored due to prepping agents used on the skin. A bluish-green tint is a normal variant and should not cause alarm. Call your doctor at [phone] if: * Temperature above 101 degrees * Pain not relieved by pain medicine ordered * There is increased drainage or redness from any incision * You have any unanswered questions, problems or concerns. FOLLOW UP VISIT: * If not already scheduled, please call the office at to schedule a follow-up appointment. You have an appointment in the office at [facility] on 08/03/18 at 9:45am with Tristian for staple removal. (1) Closed fracture of right hip: - Presented following a mechanical fall at home; has an acute nondisplaced subtrochanteric fracture of the right femur that extended through lesser trochanter. - S/P ORIF with troch nail on 07/17 - Pain has been largely controlled with Tylenol and she reports improvement each day. Could continue but have opiates available just if needed - DVT Prophylaxis - Coumadin -- Recommended therapeutic range of INR at 1.8-2.2 for DVT prevention after hip procedure - Current INR is 1.9 today -- Recommend to continue Coumadin at 0.5 mg daily and adjust pending INR draws. Recommend repeat tomorrow. Length of use per orthopedics - Orthopedics followed - F/U as discussed above for stable removal (2) Pubic ramus fracture: - Imaging showed possible acute nondisplaced left inferior and superior pubic rami fractures - conservative measures with pain control (3) LBBB (left bundle branch block): - Had new LBBB on EKG at admission; rather active without ACS symptoms - Echo showed normal systolic function, no wall motion abnormalities. - Cardiology consulted, cleared pre-operatively; no invasive testing is w arranted at this time but could be routinely monitored as outpatient (4) Anemia: - Hemoglobin is below baseline just slightly but stable (baseline 10-11) currently at 9.2 -- likely related to bleeding in setting of acute fracture and intra-op blood loss (5) Breast lesion: - Developed right breast lesion with discharge ~3-4 months ago. - No H/O breast cancer; did have biopsy of left breast lesion >30 years ago. - Most recent mammogram was >10 years ago. - Will need outpatient evaluation following resolution of acute issues. Prescriptions: New acetaminophen [Pain Reliever] 500 mg Tablet 1,000 mg PO Q8 14 Days Qty: 84 RF: 0 warfarin [Coumadin] 1 mg Tablet 0.5 mg PO DAILY@1600 30 Days Qty: 30 RF: 0 oxycodone 5 mg Tablet 5 mg PO Q4H PRN (Reason: pain) 3 Days Qty: 18 RF: 0 No Action No Known Home Medications RF: 0 Stand-Alone Forms: [facility]charge Orders: Discharge Order (Routine); Ordered 07/20/18 Ordered By: Artemio Leavitt Skilled Items Patient informed of condition?: No DNR: No Discharge Level of Care: Acute rehab Communicable Disease: No Discharge Prognosis: Stable Admission Data Admit Date/Time: 07/16/18 23:40 Attending Provider: Ian Velazquez Admit Provider: Chang Gusman Primary Care Provider: PCP,NO Other Providers: Artemio Leavitt Service: Surgical Services Other Interventions: Discharge Summary Assessment (RN) Last Done: 07/22/18 17:17 Pending Studies at Discharge: No DC Date/Time DO NOT enter until pt leaves facility: 07/22/18 18:08
== END 2018-07-22 18:08 | DRG 956 ==
LOC: ED 20:24 → SUATTDRO 23:40 → 3W 23:40
DX: I34.0 Nonrheumatic mitral (valve) insufficiency; W01.0XXA Fall on same level from slipping, tripping and stumbling without subsequent striking against object, initial encounter; S32.82XA Multiple fractures of pelvis without disruption of pelvic ring, initial encounter for closed fracture; Y93.01 Activity, walking, marching and hiking; Y99.8 Other external cause status; E87.8 Other disorders of electrolyte and fluid balance, not elsewhere classified; N18.3 Chronic kidney disease, stage 3 (moderate); I44.7 Left bundle-branch block, unspecified; D62 Acute posthemorrhagic anemia; S72.24XA Nondisplaced subtrochanteric fracture of right femur, initial encounter for closed fracture; N64.52 Nipple discharge; Y92.018 Other place in single-family (private) house as the place of occurrence of the external cause

== ENCOUNTER 2019-09-16 15:51 | Inpatient (IN) ==
[2019-09-16] MEDS ORDERED: SODIUM CHLORIDE 0.9% 500 ML IV ONE (16:09)
[2019-09-16] MEDS ORDERED: CEFEPIME 2,000 MG/20 ML VIAL IV STA (16:09)
[2019-09-16] MEDS ORDERED: SODIUM CHLORIDE 0.9% 500 ML IV SCH (16:15)
[2019-09-16] MEDS ORDERED: IOVERSOL 100ml IV PRN ×2 (16:18→17:07)
--- NOTE | 2019-09-16 16:41 | Emergency Department Note ---
Impression & Plan Hypothermia, Fall, Breast mass, right, Acute hyponatremia, Closed compression fracture of L1 vertebra ED Provider Note NAME: MURALI MALAGON AGE: 89 SEX: F : 1930 ARRIVES VIA: Ambulance INFORMANT: Patient, ED PROVIDER(S): Ashish Dubon MD Chief Complaint: Altered mental status, possible fall HPI: History is limited secondary to clinical condition and patient acuity. Most of information is obtained from EMS. EMS did report that neighbors have tried calling the patient and did not hear from the patient today. The patient did have a fall apparently 1 week ago. The patient was found down in the [facility] area and did have a temperature 29.9 Celsius. They thought that the home itself was at room temperature. I did review the patient's records which showed that the patient does have a prior history of aortic valve sclerosis mitral regurg and prior history of pelvic fractures. Patient when asked does not complain of any pain. The patient does admit to drinking ahsli sometimes. Patient reportedly is a and lives by her self. BSG was 80 prior to arrival. ROS: Limited secondary to the patient's clinical condition and likely intoxication. Past medical history: See below Surgical history: See below Social history: See below Physical Exam: GENERAL: Mildly ill in appearance, slurred speech noted. EYE EXAM: Normal conjunctiva. PERRL, no anisocoria and EOM's grossly intact w/o pain. OROPHARYNX: Poor dentition. NECK: Supple, no nuchal rigidity, no adenopathy, non-tender. No signs of meningismus. C-spine TTP. LUNGS: Clear to auscultation. Normal chest wall mechanics. Chest: Bandage taken down from the right breast which shows lesion versus infectious process. HEART: NSR, no MRG. ABDOMEN: Abdomen soft, non-tender, normo-active bowel sounds, no masses, no rebound or guarding. BACK: No CVA TTP. SKIN: Exophytic lesion versus infectious etiology of right breast. UPPER EXTREMITIES: Mild discoloration of the left hand without any obvious deformity, no TTP. LOWER EXTREMITIES: Compartments are soft with 2-3+ lower extremity edema. No obvious deformities or leg length discrepancy. NEURO EXAM: Awake and does follow basic commands, answers appropriately to name and date of . Moves all 4 extremities. Slurred speech. Differential diagnoses: Fracture, dislocation, contusion, intra-abdominal, pneumothorax, intrathoracic, intracranial, neurologic, compartment syndrome, rhabdomyolysis, as well as other pathologies. Course: Patient was seen and evaluated the bedside. Full history physical exam was performed. EKG: Indication: Trauma Imaging Studies: Radiology results as stated below per my review in the radiologist's interpretation: R hand LT 2V CLINICAL HISTORY: discoloration, ?trauma PATIENT NONCOMMUNICATIVE. COMPARISON: None. DISCUSSION: There is an old posttraumatic deformity involving the distal radius. There are advanced arthritic changes at the level the first carpal metacarpal joint. There is ulnar plus variation. No acute fractures are visualized. There are no dislocations. The examination is limited from a positioning standpoint. IMPRESSION: 1. Technically limited study 2. No acute fractures or dislocations identified 3. Diffuse soft tissue edema 4. Old distal radial fracture 5. Arthritic change ACT 112: Negative or not required by law. Electronically signed by: Ruben Escobar M.D. 09/16/2019 6:01 PM Dictated: 09/16/19 1800 Transcribed: 09/16/[address] head/brain wo con CLINICAL HISTORY: ?trauma, found down, slurred speech UNRESPONSIVE PATIENT COMPARISON STUDY: July 16, 2018 TECHNIQUE: Axial CT of the brain is performed from the vertex to the skull base. IV contrast was not administered for this examination. A dose lowering technique was utilized adhering to the principles of ALARA. CT DOSE: FINDINGS: No intra or extra-axial mass lesions are visualized. There is no CT evidence of acute cortical infarction. There is no evidence of midline shift. There is no acute hemorrhage. No calvarial fractures are visualized. There are patchy white matter hypodensities likely on a small vessel basis. There is no evidence of pathologic ventricular dilatation. There is no evidence of acute sinusitis. There is left-sided scalp and facial edema. IMPRESSION: 1. Left sided facial and scalp edema 2. No acute intracranial findings ACT 112: Negative or not required by law. Electronically signed by: Ruben Escobar M.D. 09/16/2019 5:19 PM Dictated: 09/16/19 1713 Transcribed: 09/16/19 1716 XR chest 1V portable CLINICAL HISTORY: SEPSIS COMPARISON STUDY: 07/16/2018 FINDINGS: The heart is enlarged. There is mild central vascular prominence. Since the prior study, the patient has developed a right apical opacity.. While likely infectious given the history of sepsis, a neoplastic process cannot be excluded. Right lower lung zone opacities are likely atelectatic. There is a suspected right-sided breast mass. There are small pleural effusions.[ IMPRESSION: 1. Suspected right breast mass 2. Cardiomegaly and small bilateral pleural effusions 3. Right basilar opacity statistically atelectatic 4. Interval development of a right apical opacity. Given history of sepsis, this likely represents a pneumonitis. A neoplastic process however cannot be excluded and short-term radiographic follow-up is recommended. ACT 112: Negative or not required by law. Electronically signed by: Ruben Escobar M.D. 09/16/2019 5:57 PM Dictated: 09/16/191754 Transcribed: 09/16/191754 CT OF THE CHEST WITH IV CONTRAST CLINICAL HISTORY: Unresponsive patient. Trauma. Right breast swelling. COMPARISON STUDY: No previous studies for comparison. TECHNIQUE: Following the IV administration of 91 mL of Optiray-320, CT of the thorax was performed from the thoracic inlet to the lung bases. Images are reviewed in the axial, sagittal, and coronal planes. IV contrast was administered without complication. A dose lowering technique was utilized adhering to the principles of ALARA. CT DOSE: 1810.67 mGy.cm FINDINGS: Thyroid: Imaged portions of the thyroid gland are normal in appearance. Thoracic aorta: The thoracic aorta is normal in course and caliber, noting standard 3-vessel arch anatomy. No aneurysm or dissection is seen. Pulmonary vasculature: The pulmonary trunk is normal in caliber. There are no central filling defects identified to suggest pulmonary embolus. Note that this examination was not protocoled for the evaluation of pulmonary emboli. HEART: The heart is mildly enlarged.. There is no pericardial effusion. Lungs and pleural spaces: There are ajqby-[id number]-fvzffzyh bilateral pleural effusions. There are biapical pleural-parenchymal opacities right greater than left. These are indeterminant chronicity. Mediastinum: There is no evidence of pathologic mediastinal lymphadenopathy Carrie: There is no evidence of pathologic hilar lymphadenopathy Axilla: There are borderline enlarged right axillary lymph nodes Upper abdomen: Partially visualized upper abdominal viscera is within normal limits. Skeletal structures: There is ankylosis of the dorsal spine. There is a horizontal fracture through the inferior aspect the L1 vertebra. There is a 7 cm fungating right breast mass. There is diffuse body wall edema. IMPRESSION: 1. 7 cm fungating right breast mass. This is suspicious for advanced carcinoma. 2. Borderline enlarged right axillary lymph nodes 3. Small to moderate bilateral pleural effusions 4. Ankylosis of the thoracic spine. Horizontal cleavage fracture of the L1 vertebra 5. Biapical airspace opacities of indeterminate chronicity. ACT 112: Negative or not required by law. Electronically signed by: Ruben Escobar M.D. 09/16/2019 5:43 PM Dictated: 09/16/19 1736 Transcribed: 09/16/191735 CT OF THE CERVICAL SPINE CLINICAL HISTORY: ?trauma, found down, slurred speech UNRESPONSIVE PATIENT. TRAUMA. Possible neck injury COMPARISON STUDY: No previous studies for comparison. CT DOSE: TECHNIQUE: CT scan of the cervical spine was performed from the skull base to the thoracic inlet. Images are reviewed in the axial, sagittal, and coronal planes. IV contrast was not administered for this examination. A dose lowering technique was utilized adhering to the principles of ALARA. FINDINGS: The visualized portions the lung apices reveal no pneumothorax. There are nonspecific biapical opacities right greater than left. There is diffuse subcutaneous edema/anasarca. The blood pool within the carotids appears somewhat hypodense. Correlate clinically with regards to an anemia. The prevertebral soft tissues are normal. No fractures or subluxations are visualized. There are multilevel degenerative changes IMPRESSION: No evidence of acute fracture or traumatic subluxation. ACT 112: Negative or not required by law. Electronically signed by: Ruben Escobar M.D. 09/16/2019 5:20 PM Dictated: 09/16/19 1716 Transcribed: 09/16/[address] abd pelvis IV con only CLINICAL HISTORY: Trauma. Unresponsive patient. COMPARISON STUDY: None. TECHNIQUE: The patient was scanned in a dynamic helical fashion during intravenous administration of 91 cc of Optiray 320. A dose lowering technique was utilized adhering to the principles of ALARA. CT DOSE: FINDINGS: Lower chest: There are bilateral pleural effusions. There is bibasilar atelectasis. There is a suspected large right breast mass with skin involvement. This would be evaluated further on the CT scan of the chest. Liver: The contrast-enhanced liver is normal in size, contour, and attenuation. There is no intrahepatic biliary ductal dilatation. The hepatic veins and portal veins are patent. Gallbladder: The gallbladder appears to be located anterior to the liver. Spleen: Normal in size and attenuation. Pancreas: Atrophic. No focal masses identified. Adrenal glands: Unremarkable. Kidneys: There is an 8 mm upper pole right renal cyst. No solid renal masses are visualized. There is no hydronephrosis. Bowel: There are no transition zones to indicate bowel obstruction. There is no evidence of acute diverticulitis. Bowel evaluation is limited given the paucity of intra-abdominal fat and the lack of oral contrast. There are no convincing signs to indicate acute appendicitis. Peritoneum: No free air is visualized. There is trace ascites. Vasculature: There are moderate aortoiliac atheromatous changes. There is no evidence for abdominal aortic aneurysm Adenopathy: None. Pelvic viscera: The bladder, and pelvic viscera are unremarkable. Skeletal structures: There is a horizontal cleavage plane fracture through the inferior aspect of the L1 vertebra. Posterior elements appear intact. IMPRESSION: 1. Horizontal L1 vertebral body cleavage fracture with approximately 30% vertebral body loss in height. This fracture is likely acute. The posterior elements appear intact. 2. No evidence of abdominal or pelvic solid organ injury 3. Small bilateral pleural effusions 4. Suspected right breast mass 5. Diffuse body wall edema ACT 112: Negative or not required by law. Electronically signed by: Ruben Escobar M.D. 09/16/2019 5:30 PM Dictated: 09/16/19 172 Transcribed: 09/16/19 172 Cardiac monitoring: An order was placed for continuous cardiac monitoring. The monitor shows a rate of 60 with sinus rhythm. MDM: Patient was seen as an unresponsive patient was found down. Patient did a blood work completed bear hugger was applied patient did have CT of the head neck chest abdomen pelvis along with plain films of the left upper extremity. Blood cultures were ordered as well as empiric antibiotics given the patient's hyp othermia and associated possible exophytic lesion versus infectious process of the right breast. 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 Patient does have some mild hyponatremia and elevated CK. Kidney function does show likely prerenal azotemia and dehydration. The patient did receive IV fluids and the patient is hypothermic so a bear hugger was applied. The patient CTs do not show any acute abnormality with the exception of a lumbar spine fracture. The patient also does likely have a breast mass concerning for carcinoma. A hand x-ray shows no acute fracture. I did speak the on-call hospitalist and the patient was admitted by Dr. Singletary not any physician group h ospitalist. Past Med/Surg History Medical History (Updated 09/16/19 @ 21:10 by Ashish Dubon MD) Breast lesion Closed fracture of right hip (Inactive) Closed right femoral fracture (Inactive) DVT prophylaxis Electrolyte abnormality Fall Pubic ramus fracture Scoliosis Thrombocytosis (Inactive) Surgical History H/O removal of cyst breast cyst removal Family History Other Family history non-contributory Social History Preferred Language: Amharic Communication Ability: Effective City Tax Auditor Required: No Beliefs That Will Affect Care: None marital status: / Current Living Situation: Alone Feels Safe at Home: Yes Smoking Status: Unknown if ever smoked Hx Alcohol Use: No Hx Substance Use: No Allergies Allergies Allergy/AdvReac Type Severity Reaction Status Date / Time No Known Allergies Allergy Unverified 05/21/19 13:22 Home Meds Home Medications Medication Instructions Recorded Confirmed No Known Home Medications 07/17/18 09/16/19 Results & Data (ED) Vital Signs Vital Signs - 24 hr 09/16/19 16:02 09/16/19 16:04 09/16/19 16:10 Temperature Temperature Source Pulse Rate 68 67 66 Pulse Rate from SpO2 Sensor 68 67 66 Respiratory Rate 19 25 H 14 Blood Pressure 165/62 H Blood Pressure Mean 117 Pulse Oximetry 100 100 99 Oxygen Delivery Method Sepsis Recent Fever Within 48 Hours Sepsis Action Taken by Nursing 09/16/19 16:16 09/16/19 16:17 09/16/19 16:20 Temperature 29.9 C L Temperature Source Rectal Pulse Rate 58 L 60 60 Pulse Rate from SpO2 Sensor 59 L 61 Respiratory Rate 16 12 10 L Blood Pressure 133/59 L 133/59 L Blood Pressure Mean 84 83 Pulse Oximetry 99 100 100 Oxygen Delivery Method Room Air Sepsis Recent Fever Within 48 Hours No Sepsis Action Taken by Nursing No Action Required 09/16/19 16:30 09/16/19 16:31 05/28/20 16:40 Temperature Temperature Source Pulse Rate 56 L 56 L 55 L Pulse Rate from SpO2 Sensor 57 L 56 L 55 L Respiratory Rate 8 L 12 2 L Blood Pressure 104/45 L Blood Pressure Mean 60 Pulse Oximetry 99 99 99 Oxygen Delivery Method Sepsis Recent Fever Within 48 Hours Sepsis Action Taken by Nursing 09/16/19 16:45 09/16/19 16:50 09/16/19 17:21 Temperature Temperature Source Pulse Rate 56 L 53 L 71 Pulse Rate from SpO2 Sensor 56 L 53 L Respiratory Rate 9 L 10 L 13 Blood Pressure 96/45 L Blood Pressure Mean 52 Pulse Oximetry 99 99 Oxygen Delivery Method Sepsis Recent Fever Within 48 Hours Sepsis Action Taken by Nursing 09/16/19 17:22 09/16/19 17:30 09/16/19 17:31 Temperature Temperature Source Pulse Rate 69 64 65 Pulse Rate from SpO2 Sensor 63 61 Respiratory Rate 9 L Blood Pressure 132/57 L 125/50 L Blood Pressure Mean 70 69 Pulse Oximetry 98 100 Oxygen Delivery Method Sepsis Recent Fever Within 48 Hours Sepsis Action Taken by Nursing 09/16/19 17:40 09/16/19 17:45 09/16/19 17:50 Temperature Temperature Source Pulse Rate 65 69 Pulse Rate from SpO2 Sensor 65 69 61 Respiratory Rate 14 Blood Pressure 130/73 Blood Pressure Mean 90 Pulse Oximetry 100 100 100 Oxygen Delivery Method Sepsis Recent Fever Within 48 Hours Sepsis Action Taken by Nursing 09/16/19 18:00 09/16/19 18:01 09/16/19 18:10 Temperature Temperature Source Pulse Rate Pulse Rate from SpO2 Sensor 61 60 62 Respiratory Rate Blood Pressure 106/38 L Blood Pressure Mean 63 Pulse Oximetry 100 100 100 Oxygen Delivery Method Sepsis Recent Fever Within 48 Hours Sepsis Action Taken by Nursing 09/16/19 18:15 09/16/19 18:20 09/16/19 18:30 Temperature Temperature Source Pulse Rate 63 66 65 Pulse Rate from SpO2 Sensor 63 66 64 Respiratory Rate 7 L 0 L Blood Pressure 104/48 L 99/44 L Blood Pressure Mean 67 54 Pulse Oximetry 100 100 100 Oxygen Delivery Method Sepsis Recent Fever Within 48 Hours Sepsis Action Taken by Nursing 09/16/19 18:31 09/16/19 18:40 Temperature Temperature Source Pulse Rate 62 Pulse Rate from SpO2 Sensor 62 64 Respiratory Rate 22 Blood Pressure Blood Pressure Mean Pulse Oximetry 100 Oxygen Delivery Method Sepsis Recent Fever Within 48 Hours Sepsis Action Taken by Jail Medications Current Medication List: was personally reviewed by nh Laboratory Data Attestation: I reviewed the patient's lab results. Result diagrams: 09/16/19 16:25 09/16/19 16:25 Lab Results 09/16/19 09/16/19 09/16/19 Range/Units 16:25 16:25 16:25 WBC 12.57 H (4.8-10.8) K/uL RBC 4.06 L (4.2-5.4) M/uL Hgb 11.3 L (12.0-16.0) g/dL POC Hgb (12.0-16.0) g/dl Hct 34.0 L (37-47) % POC Hct (37-47) % MCV 83.7 (80-100) fL MCH 27.8 (25-34) pg MCHC 33.2 (32-36) g/dL RDW Std Deviation 46.8 H (36.4-46.3) fL RDW Coeff of Simon 15.3 H (11.5-14.5) % Plt Count 256 (130-400) K/uL MPV 10.0 (7.4-10.4) fL Immature Gran % (Auto) 0.2 % Neut % (Auto) 95.4 % Lymph % (Auto) 2.0 % [place] % (Auto) 2.4 % Eos % (Auto) 0.0 % Baso % (Auto) 0.0 % Immature Gran # (Auto) 0.03 H (0.00-0.02) K/uL Neut # (Auto) 11.99 H (1.4-6.5) K/uL Lymph # (Auto) 0.25 L (1.2-3.4) K/uL [place] # (Auto) 0.30 (0.11-0.59) K/uL Eos # (Auto) 0.00 (0-0.5) K/uL Baso # (Auto) 0.00 (0-0.2) K/uL PT 13.5 H (9.0-12.0) Seconds INR 1.3 H (0.9-1.1) APTT 36.4 H (21.0-31.0) Seconds PTT Ratio 1.3 POC Sodium (135-144) mmol/L Sodium 129 L (136-145) mmol/L POC Potassium (3.3-5.0) mmol/L Potassium 3.9 (3.5-5.1) mmol/L POC Chloride (101-112) mmol/L Chloride 95 L (98-107) mmol/L Carbon Dioxide 25 (21-32) mmol/L POC Total CO2 (24-31) mmol/L Anion Gap 9.0 (3-11) POC Anion Gap (16-25) mmol/L POC BUN (7-18) mg/dl BUN 29 H (7-18) mg/dl Creatinine 0.44 L (0.6-1.2) mg/dl POC Creatinine (0.6-1.3) mg/dl Est Cr Clr Drug Dosing 102.3 ml/min Est GFR ( Amer) 104.5 Est GFR (Non-Af Amer) 90.1 BUN/Creatinine Ratio 66.8 H (10-20) Glucose 85 (70-99) mg/dl POC Glucose (other) (70-99) mg/dl Lactate (0.4-2.0) mmol/L Calcium 9.2 (8.5-10.1) mg/dl POC Ioniz Calcium Adrián (1.12-1.32) mmol/l Magnesium 2.0 (1.8-2.4) mg/dl Total Bilirubin 0.9 (0.2-1) mg/dl AST 155 H (15-37) U/L ALT 62 (12-78) U/L Alkaline Phosphatase 107 (45-117) U/L Total Creatine Kinase 1006 H (26-192) U/L Troponin I < 0.015 (0-0.045) ng/ml Total Protein 6.3 L (6.4-8.2) gm/dl Albumin 2.6 L (3.4-5.0) gm/dl Globulin 3.7 (2.5-4.0) gm/dl Albumin/Globulin Ratio 0.7 L (0.9-2) Procalcitonin (0-0.5) ng/ml Urine Color Urine Appearance (Clear) Urine pH (4.5-7.5) Ur Specific [place] (1.000-1.030) Urine Protein (Negative) Urine Glucose (UA) (Negative) Urine Ketones (Negative) Urine Blood (Negative) Urine Nitrite (Negative) Urine Bilirubin (Negative) Urine Urobilinogen (Negative) Ur Leukocyte Esterase (Negative) Urine WBC (Auto) (0-5) /hpf Urine RBC (Auto) (0-4) /hpf U Hyaline Cast (Auto) (0-5) /lpf U Epithel Cells (Auto) (0-5) /lpf Urine Bacteria (Auto) (Negative) Ethyl Alcohol mg/dL (0-3) mg/dl 09/16/19 09/16/19 09/16/19 Range/Units 16:25 16:25 16:27 WBC (4.8-10.8) K/uL RBC (4.2-5.4) M/uL Hgb (12.0-16.0) g/dL POC Hgb (12.0-16.0) g/dl Hct (37-47) % POC Hct (37-47) % MCV (80-100) fL MCH (25-34) pg MCHC (32-36) g/dL RDW Std Deviation (36.4-46.3) fL RDW Coeff of Simon (11.5-14.5) % Plt Count (130-400) K/uL MPV (7.4-10.4) fL Immature Gran % (Auto) % Neut % (Auto) % Lymph % (Auto) % [place] % (Auto) % Eos % (Auto) % Baso % (Auto) % Immature Gran # (Auto) (0.00-0.02) K/uL Neut # (Auto) (1.4-6.5) K/uL Lymph # (Auto) (1.2-3.4) K/uL [place] # (Auto) (0.11-0.59) K/uL Eos # (Auto) (0-0.5) K/uL Baso # (Auto) (0-0.2) K/uL PT (9.0-12.0) Seconds INR (0.9-1.1) APTT (21.0-31.0) Seconds PTT Ratio POC Sodium (135-144) mmol/L Sodium (136-145) mmol/L POC Potassium (3.3-5.0) mmol/L Potassium (3.5-5.1) mmol/L POC Chloride (101-112) mmol/L Chloride (98-107) mmol/L Carbon Dioxide (21-32) mmol/L POC Total CO2 (24-31) mmol/L Anion Gap (3-11) POC Anion Gap (16-25) mmol/L POC BUN (7-18) mg/dl BUN (7-18) mg/dl Creatinine (0.6-1.2) mg/dl POC Creatinine (0.6-1.3) mg/dl Est Cr Clr Drug Dosing ml/min Est GFR ( Amer) Est GFR (Non-Af Amer) BUN/Creatinine Ratio (10-20) Glucose (70-99) mg/dl POC Glucose (other) (70-99) mg/dl Lactate 1.7 (0.4-2.0) mmol/L Calcium (8.5-10.1) mg/dl POC Ioniz Calcium Adrián (1.12-1.32) mmol/l Magnesium (1.8-2.4) mg/dl Total Bilirubin (0.2-1) mg/dl AST (15-37) U/L ALT (12-78) U/L Alkaline Phosphatase (45-117) U/L Total Creatine Kinase (26-192) U/L Troponin I (0-0.045) ng/ml Total Protein (6.4-8.2) gm/dl Albumin (3.4-5.0) gm/dl Globulin (2.5-4.0) gm/dl Albumin/Globulin Ratio (0.9-2) Procalcitonin 0.14 (0-0.5) ng/ml Urine Color Urine Appearance (Clear) Urine pH (4.5-7.5) Ur Specific [place] (1.000-1.030) Urine Protein (Negative) Urine Glucose (UA) (Negative) Urine Ketones (Negative) Urine Blood (Negative) Urine Nitrite (Negative) Urine Bilirubin (Negative) Urine Urobilinogen (Negative) Ur Leukocyte Esterase (Negative) Urine WBC (Auto) (0-5) /hpf Urine RBC (Auto) (0-4) /hpf U Hyaline Cast (Auto) (0-5) /lpf U Epithel Cells (Auto) (0-5) /lpf Urine Bacteria (Auto) (Negative) Ethyl Alcohol mg/dL < 3.0 (0-3) mg/dl 09/16/19 09/16/19 Range/Units 16:36 17:35 WBC (4.8-10.8) K/uL RBC (4.2-5.4) M/uL Hgb (12.0-16.0) g/dL POC Hgb 12.9 (12.0-16.0) g/dl Hct (37-47) % POC Hct 38 (37-47) % MCV (80-100) fL MCH (25-34) pg MCHC (32-36) g/dL RDW Std Deviation (36.4-46.3) fL RDW Coeff of Simon (11.5-14.5) % Plt Count (130-400) K/uL MPV (7.4-10.4) fL Immature Gran % (Auto) % Neut % (Auto) % Lymph % (Auto) % [place] % (Auto) % Eos % (Auto) % Baso % (Auto) % Immature Gran # (Auto) (0.00-0.02) K/uL Neut # (Auto) (1.4-6.5) K/uL Lymph # (Auto) (1.2-3.4) K/uL [place] # (Auto) (0.11-0.59) K/uL Eos # (Auto) (0-0.5) K/uL Baso # (Auto) (0-0.2) K/uL PT (9.0-12.0) Seconds INR (0.9-1.1) APTT (21.0-31.0) Seconds PTT Ratio POC Sodium 128 L (135-144) mmol/L Sodium (136-145) mmol/L POC Potassium 3.9 (3.3-5.0) mmol/L Potassium (3.5-5.1) mmol/L POC Chloride 93 L (101-112) mmol/L Chloride (98-107) mmol/L Carbon Dioxide (21-32) mmol/L POC Total CO2 24 (24-31) mmol/L Anion Gap (3-11) POC Anion Gap 16.0 (16-25) mmol/L POC BUN 30 H (7-18) mg/dl BUN (7-18) mg/dl Creatinine (0.6-1.2) mg/dl POC Creatinine 0.4 L (0.6-1.3) mg/dl Est Cr Clr Drug Dosing ml/min Est GFR ( Amer) Est GFR (Non-Af Amer) BUN/Creatinine Ratio (10-20) Glucose (70-99) mg/dl POC Glucose (other) 83 (70-99) mg/dl Lactate (0.4-2.0) mmol/L Calcium (8.5-10.1) mg/dl POC Ioniz Calcium Adrián 1.20 (1.12-1.32) mmol/l Magnesium (1.8-2.4) mg/dl Total Bilirubin (0.2-1) mg/dl AST (15-37) U/L ALT (12-78) U/L Alkaline Phosphatase (45-117) U/L Total Creatine Kinase (26-192) U/L Troponin I (0-0.045) ng/ml Total Protein (6.4-8.2) gm/dl Albumin (3.4-5.0) gm/dl Globulin (2.5-4.0) gm/dl Albumin/Globulin Ratio (0.9-2) Procalcitonin (0-0.5) ng/ml Urine Color Dark Yellow Urine Appearance Clear (Clear) Urine pH 5.0 (4.5-7.5) Ur Specific [place] 1.026 (1.000-1.030) Urine Protein Trace H (Negative) Urine Glucose (UA) Negative (Negative) Urine Ketones 1+ H (Negative) Urine Blood Negative (Negative) Urine Nitrite Negative (Negative) Urine Bilirubin Negative (Negative) Urine Urobilinogen Negative (Negative) Ur Leukocyte Esterase Negative (Negative) Urine WBC (Auto) 0 (0-5) /hpf Urine RBC (Auto) 0-4 (0-4) /hpf U Hyaline Cast (Auto) 1-5 (0-5) /lpf U Epithel Cells (Auto) 5-10 H (0-5) /lpf Urine Bacteria (Auto) Negative (Negative) Ethyl Alcohol mg/dL (0-3) mg/dl Administered Medications Lactated Ringer's (Lr) 1,000 mls @ 80 mls/hr IV .[id number] BOONE Stop: 10/16/19 20:36 Last Admin: 09/16/19 20:49 Dose: 80 mls/hr Documented by: [id number] Discontinued Medications Sodium Chloride (Nss) 500 mls @ 999 mls/hr IV .Q31M ONE Stop: 09/16/19 16:39 Last Infusion: 09/16/19 17:46 Dose: 0 mls/hr Documented by: [id number] Admin: 09/16/19 16:47 Dose: 999 mls/hr Documented by: [id number] Cefepime HCl (Maxipime) 2,000 mg in 20 mls @ 5 mls/min IV NOW STA; Protocol Stop: 09/16/19 16:12 Last Admin: 09/16/19 16:47 Dose: 5 mls/min Documented by: [id number] Sodium Chloride (Nss) 500 mls @ 999 mls/hr IV .Q31M BOONE Stop: 09/16/19 16:45 Last Infusion: 09/16/19 17:46 Dose: 0 mls/hr Documented by: [id number] Admin: 09/16/19 16:47 Dose: 999 mls/hr Documented by: [id number] Sodium Chloride (Nss 1000ml) 500 mls @ 999 mls/hr IV .Q31M ONE Stop: 09/16/19 18:24 Last Admin: 09/16/19 18:21 Dose: 999 mls/hr Documented by: [id number] Ioversol (Optiray 320 100ml) 93 ml IV ONCE PRN PRN Reason: Interaction Checking Stop: 09/20/19 16:17 Last Admin: 09/16/19 16:19 Dose: 93 ml Documented by: [id number] Ioversol (Optiray 320 100ml) 94 ml IV ONCE PRN PRN Reason: Interaction Checking Stop: 09/20/19 17:06 Last Admin: 09/16/19 17:07 Dose: 1 ml Documented by: [id number] Discharge Plan Visit Data *Final* Discharge Date/Time: 09/16/19 19:51 Chief Complaint: Confusion Stated Complaint: CONFUSION ED Provider: Ashish Dubon Discharge Problem: Hypothermia, Fall, Breast mass, right, Acute hyponatremia, Closed compression fracture of L1 vertebra Patient Disposition: Admitted As Inpatient Discharge Instructions Interventions: ED Discharge Assessment Last Done: 09/16/19 19:51 Discharge Problem: Hypothermia Qualifiers: Encounter type: initial encounter Qualified Code(s): T68.XXXA - Hypothermia, initial encounter Fall Qualifiers: Encounter type: initial encounter Qualified Code(s): W19.XXXA - Unspecified fall, initial encounter Closed compression fracture of L1 vertebra Qualifiers: Encounter type: initial encounter Qualified Code(s): S32.010A - Wedge compression fracture of first lumbar vertebra, initial encounter for closed fracture
[2019-09-16 16:43] LABS: Hemoglobin 11.3 g/dL (12.0-16.0); Immature Granulocytes # (auto) 0.03 K/uL (0.00-0.02); Immature Granulocytes % (auto) 0.2 %; Lymphocytes # (auto) 0.25 K/uL (1.2-3.4); Mean Corpuscular Hemoglobin 27.8 pg (25-34); Mean Corpuscular Hgb Conc 33.2 g/dL (32-36); Mean Corpuscular Volume 83.7 fL (80-100); Monocytes % (auto) 2.4 %; Neutrophils # (auto) 11.99 K/uL (1.4-6.5); Neutrophils % (auto) 95.4 %; Platelet Count 256 K/uL (130-400); RDW Coefficient of Variation 15.3 % (11.5-14.5); RDW Standard Deviation 46.8 fL (36.4-46.3); Red Blood Count 4.06 M/uL (4.2-5.4); White Blood Count 12.57 K/uL (4.8-10.8)
[2019-09-16 16:49] LABS: iSTAT Creatinine 0.4 mg/dl (0.6-1.3); iSTAT Hemoglobin 12.9 g/dl (12.0-16.0); iSTAT Ionized Calcium 1.2 mmol/l (1.12-1.32); iSTAT Potassium 3.9 mmol/L (3.3-5.0)
[2019-09-16 16:55] LABS: INR 1.3 (0.9-1.1); Partial Thromboplastin Ratio 1.3; Partial Thromboplastin Time 36.4 Seconds (21.0-31.0); Prothrombin Time 13.5 Seconds (9.0-12.0)
[2019-09-16 16:59] LABS: Alanine Aminotransferase 62 U/L (12-78); Albumin Level 2.6 gm/dl (3.4-5.0); Aspartate Aminotransferase 155 U/L (15-37); BUN Creatinine Ratio 66.8 (10-20); Blood Urea Nitrogen 29 mg/dl (7-18); Calcium 9.2 mg/dl (8.5-10.1); Carbon Dioxide 25 mmol/L (21-32); Chloride 95 mmol/L (98-107); Creatinine Clr Calc Pharmacy 102.3 ml/min; Est GFR (African American) 104.5; Est GFR (Non-African American) 90.1; Glucose 85 mg/dl (70-99); Potassium 3.9 mmol/L (3.5-5.1); Sodium 129 mmol/L (136-145)
[2019-09-16 17:12] LABS: Albumin Globulin Ratio 0.7 (0.9-2); Alkaline Phosphatase 107 U/L (45-117); Bilirubin,Total 0.9 mg/dl (0.2-1); Creatine Kinase 1006 U/L (26-192); Globulin 3.7 gm/dl (2.5-4.0); Total Protein 6.3 gm/dl (6.4-8.2); Troponin I < 0.015 ng/ml (0-0.045)
--- NOTE | 2019-09-16 17:21 | CT Scan Report ---
CT head/brain wo con CLINICAL HISTORY: ?trauma, found down, slurred speech UNRESPONSIVE PATIENT COMPARISON STUDY: July 16, 2018 TECHNIQUE: Axial CT of the brain is performed from the vertex to the skull base. IV contrast was not administered for this examination. A dose lowering technique was utilized adhering to the principles of ALARA. CT DOSE: FINDINGS: No intra or extra-axial mass lesions are visualized. There is no CT evidence of acute cortical infarc tion. There is no evidence of midline shift. There is no acute hemorrhage. No calvarial fractures ar e visualized. There are patchy white matter hypodensities likely on a small vessel basis. There is no evidence of pathologic ventricular dilatation. There is no evidence of acute sinusitis. There is left-sided scalp and facial edema. IMPRESSION: 1. Left sided facial and scalp edema 2. No acute intracranial findings ACT 112: Negative or not required by law. Electronically signed by: Ruben Escobar M.D. 09/16/2019 5:19 PM
--- NOTE | 2019-09-16 17:21 | CT Scan Report ---
CT OF THE CERVICAL SPINE CLINICAL HISTORY: ?trauma, found down, slurred speech UNRESPONSIVE PATIENT. TRAUMA. Possible neck inj ury COMPARISON STUDY: No previous studies for comparison. CT DOSE: TECHNIQUE: CT scan of the cervical spine was performed from the skull base to the thoracic inlet. Negar ges are reviewed in the axial, sagittal, and coronal planes. IV contrast was not administered for thi s examination. A dose lowering technique was utilized adhering to the principles of ALARA. FINDINGS: The visualized portions the lung apices reveal no pneumothorax. There are nonspecific biapical opacit ies right greater than left. There is diffuse subcutaneous edema/anasarca. The blood pool within the carotids appears somewhat hypodense. Correlate clinically with regards to an anemia. The prevertebral soft tissues are normal. No fractures or subluxations are visualized. There are multilevel degenerative changes IMPRESSION: No evidence of acute fracture or traumatic subluxation. ACT 112: Negative or not required by law. Electronically signed by: Ruben Escobar M.D. 09/16/2019 5:20 PM
--- NOTE | 2019-09-16 17:31 | CT Scan Report ---
CT abd pelvis IV con only CLINICAL HISTORY: Trauma. Unresponsive patient. COMPARISON STUDY: None. TECHNIQUE: The patient was scanned in a dynamic helical fashion during intravenous administration of 91 cc of Optiray 320. A dose lowering technique was utilized adhering to the principles of ALARA. CT DOSE: FINDINGS: Lower chest: There are bilateral pleural effusions. There is bibasilar atelectasis. There is a suspec tg large right breast mass with skin involvement. This would be evaluated further on the CT scan of the chest. Liver: The contrast-enhanced liver is normal in size, contour, and attenuation. There is no intrahepa tic biliary ductal dilatation. The hepatic veins and portal veins are patent. Gallbladder: The gallbladder appears to be located anterior to the liver. Spleen: Normal in size and attenuation. Pancreas: Atrophic. No focal masses identified. Adrenal glands: Unremarkable. Kidneys: There is an 8 mm upper pole right renal cyst. No solid renal masses are visualized. There is no hydronephrosis. Bowel: There are no transition zones to indicate bowel obstruction. There is no evidence of acute div erticulitis. Bowel evaluation is limited given the paucity of intra-abdominal fat and the lack of ora l contrast. There are no convincing signs to indicate acute appendicitis. Peritoneum: No free air is visualized. There is trace ascites. Vasculature: There are moderate aortoiliac atheromatous changes. There is no evidence for abdominal a ortic aneurysm Adenopathy: None. Pelvic viscera: The bladder, and pelvic viscera are unremarkable. Skeletal structures: There is a horizontal cleavage plane fracture through the inferior aspect of the L1 vertebra. Posterior elements appear intact. IMPRESSION: 1. Horizontal L1 vertebral body cleavage fracture with approximately 30% vertebral body loss in heigh t. This fracture is likely acute. The posterior elements appear intact. 2. No evidence of abdominal or pelvic solid organ injury 3. Small bilateral pleural effusions 4. Suspected right breast mass 5. Diffuse body wall edema ACT 112: Negative or not required by law. Electronically signed by: Ruben Escobar M.D. 09/16/2019 5:30 PM
[2019-09-16 17:41] LABS: Appearance Urine Clear (Clear); Bacteria Urine Automated Negative (Negative); Bilirubin Urine Negative (Negative); Blood Urine Negative (Negative); Color Urine Dark Yellow; Glucose Urine UA Negative (Negative); Ketones Urine 1+ (Negative); Leukocyte Esterase Urine Negative (Negative); Nitrite Urine Negative (Negative); Protein Urine Trace (Negative); RBC Urine Automated 0-4 /hpf (0-4); Specific Gravity Urine 1.026 (1.000-1.030); Urobilinogen Urine Negative (Negative); WBC Urine Automated 0 /hpf (0-5)
--- NOTE | 2019-09-16 17:44 | CT Scan Report ---
CT OF THE CHEST WITH IV CONTRAST CLINICAL HISTORY: Unresponsive patient. Trauma. Right breast swelling. COMPARISON STUDY: No previous studies for comparison. TECHNIQUE: Following the IV administration of 91 mL of Optiray-320, CT of the thorax was performed f rom the thoracic inlet to the lung bases. Images are reviewed in the axial, sagittal, and coronal carlos james. IV contrast was administered without complication. A dose lowering technique was utilized adher ing to the principles of ALARA. CT DOSE: 1810.67 mGy.cm FINDINGS: Thyroid: Imaged portions of the thyroid gland are normal in appearance. Thoracic aorta: The thoracic aorta is normal in course and caliber, noting standard 3-vessel arch zain naima. No aneurysm or dissection is seen. Pulmonary vasculature: The pulmonary trunk is normal in caliber. There are no central filling defects identified to suggest pulmonary embolus. Note that this examination was not protocoled for the evalu ation of pulmonary emboli. HEART: The heart is mildly enlarged.. There is no pericardial effusion. Lungs and pleural spaces: There are vanuw-zh-cftjafhw bilateral pleural effusions. There are biapical pleural-parenchymal opacities right greater than left. These are indeterminant chronicity. Mediastinum: There is no evidence of pathologic mediastinal lymphadenopathy Carrie: There is no evidence of pathologic hilar lymphadenopathy Axilla: There are borderline enlarged right axillary lymph nodes Upper abdomen: Partially visualized upper abdominal viscera is within normal limits. Skeletal structures: There is ankylosis of the dorsal spine. There is a horizontal fracture through t he inferior aspect the L1 vertebra. There is a 7 cm fungating right breast mass. There is diffuse bod y wall edema. IMPRESSION: 1. 7 cm fungating right breast mass. This is suspicious for advanced carcinoma. 2. Borderline enlarged right axillary lymph nodes 3. Small to moderate bilateral pleural effusions 4. Ankylosis of the thoracic spine. Horizontal cleavage fracture of the L1 vertebra 5. Biapical airspace opacities of indeterminate chronicity. ACT 112: Negative or not required by law. Electronically signed by: Ruben Escobar M.D. 09/16/2019 5:43 PM
[2019-09-16] MEDS ORDERED: SODIUM CHLORIDE 0.9% 1000ML 500 ML IV ONE (17:54)
--- NOTE | 2019-09-16 17:58 | XRay Report ---
XR chest 1V portable CLINICAL HISTORY: SEPSIS COMPARISON STUDY: 07/16/2018 FINDINGS: The heart is enlarged. There is mild central vascular prominence. Since the prior study, th e patient has developed a right apical opacity.. While likely infectious given the history of sepsis, a neoplastic process cannot be excluded. Right lower lung zone opacities are likely atelectatic. The re is a suspected right-sided breast mass. There are small pleural effusions.[ IMPRESSION: 1. Suspected right breast mass 2. Cardiomegaly and small bilateral pleural effusions 3. Right basilar opacity statistically atelectatic 4. Interval development of a right apical opacity. Given history of sepsis, this likely represents a pneumonitis. A neoplastic process however cannot be excluded and short-term radiographic follow-up is recommended. ACT 112: Negative or not required by law. Electronically signed by: Ruben Escobar M.D. 09/16/2019 5:57 PM
--- NOTE | 2019-09-16 18:02 | XRay Report ---
XR hand LT 2V CLINICAL HISTORY: discoloration, ?trauma PATIENT NONCOMMUNICATIVE. COMPARISON: None. DISCUSSION: There is an old posttraumatic deformity involving the distal radius. There are advanced a rthritic changes at the level the first carpal metacarpal joint. There is ulnar plus variation. No ac chilkoot fractures are visualized. There are no dislocations. The examination is limited from a positionin g standpoint. IMPRESSION: 1. Technically limited study 2. No acute fractures or dislocations identified 3. Diffuse soft tissue edema 4. Old distal radial fracture 5. Arthritic change ACT 112: Negative or not required by law. Electronically signed by: Ruben Escobar M.D. 09/16/2019 6:01 PM
--- NOTE | 2019-09-16 19:03 | History & Physical Report ---
Date of Service September 16, 2019 Assessment & Plan (1) Fall: Presents after a fall. Likely only down for ~6 hours per friends' estimates. - L1 fracture as below - IV fluids - Monitor CK - Rewarm with Nilam Hugger - When/if able with do PT/OT (2) Pneumonia: CT chest on 09/15 shows apical opacity with R>L. Hypothermic and elevated WBC. Will treat as community-acquired pneumonia. - Treat with ceftriaxone and azithromycin - Monitor breathing (3) L1 vertebral fracture: CT a/p shows a horizontal L1 vertebral body cleavage fracture with approximately 30% vertebral body loss in height. Appears neurologically intact at this time with light touch sensation intake and some movement of the toes. - Bedrest - Pain control - Discussed case with Dr. Singh. Per LYRIC, she would not want major surgery. He will see her in the morning to discuss options. (4) Hypothermia: Likely due to being on the ground for some time. - Nilam hugger - TSH (5) Leg swelling: Appears to be somewhat chronic as it is listed in her PCP note from 04/2019. At that time she declined further work-up. - Monitor (6) Breast lesion: 7cm fungating breast mast noted on exam and on CT scan. This was noted in her prior discharge summary from over a year ago without the patient following up with health care provider. - Palliative care consult -> Laurie, howie & LYRIC, agrees she would not want intensive treatment for this. - Given erythema and purulence, will treat with antibiotics. - Pain control (7) DVT prophylaxis: Heparin 5,000 units SQ Q12h History of Present Illness Primary Care Provider: Soy Martin MD 89yo F w/ hx of aortic valve sclerosis and prior fall with subsequent hip fracture who presents after being found down by friend. Per LYRIC and friend, Laurie, she was seen well yesterday. She had had a fall about 1 week prior, but did not seek help and declined intervention by her friends. Per Laurie, she is very private by nature and reluctant to seek medical assistance. She was found by her friends this afternoon face down in her dining room. The friends found a sandal outside her house and feel she may have fallen shortly a fter coming inside this morning after feeding the birds. On admission, she is awake and oriented to herself, but unable to give any recent history or recount events. On questioning, she will only repeat that she is "fine." She denies any back pain or any leg pain, denies shortness of breath, denies any other symptoms, again only repeating she feels "fine" and "[is] fine" when asked about particular complaints. Allergies Allergy/AdvReac Type Severity Reaction Status Date / Time No Known Allergies Allergy Unverified 05/21/19 13:22 Home Medications Home Medications Medication Instructions Recorded Confirmed Type No Known Home Medications 07/17/18 09/16/19 History Past Med/Surg History Medical History Breast lesion Closed fracture of right hip (Inactive) Closed right femoral fracture (Inactive) DVT prophylaxis Electrolyte abnormality Fall Pubic ramus fracture Scoliosis Thrombocytosis (Inactive) Surgical History H/O removal of cyst breast cyst removal Family History Other Family history non-contributory Social History Preferred Language: Syriac Communication Ability: Effective Aviation Safety Inspector Required: No Beliefs That Will Affect Care: None marital status: / Current Living Situation: Alone Feels Safe at Home: Yes Smoking Status: Unknown if ever smoked Hx Alcohol Use: No Hx Substance Use: No Review of Systems Review of Systems: Unobtainable due to cognitive status Physical Exam Constitutional: WD/WN, vitals as above + acute distress, + frail appearing and + disheveled Eyes: EOM intact bilaterally; no conjunctival abnormality ENMT: external ear and nose normal, oropharynx normal Neck: trachea midline, no thyromegaly normal visual inspection Respiratory: normal respiratory effort, lungs clear to auscultation no respiratory distress Cardiovascular: Rate/Rhythm: regular rate and regular rhythm Heart Sounds: normal S1 and normal S2 Extremities: + edema (Left 2+, right 1+) Chest (Breasts): Breast: + breast mass (Fungating right breast mass with purulence and erythema) Gastrointestinal (Abdomen): Inspection/Auscultation: abdomen normal to inspection; abdomen not distended Percussion/Palpation: abdomen soft; abdomen nontender Musculoskeletal: no cyanosis or clubbing, extremities motor strength 5/5 Skin: Trauma: + evidence of skin trauma, + abrasion (Multiple abrasions and contusions) and + periorbital ecchymosis Neurologic: moves all extremities and awake Psychiatric: Orientation: oriented to person; + not oriented to place and + not oriented to time Results & Data Results & Data ([facility]) Vital Signs (Past 12 Hours) Vital Signs Temp Pulse Resp BP Pulse Ox 09/16/19 17:31 65 100 09/16/19 17:30 64 125/50 L 98 09/16/19 17:22 69 9 L 132/57 L 09/16/19 17:21 71 13 09/16/19 16:50 53 L 10 L 99 09/16/19 16:45 56 L 9 L 96/45 L 99 09/16/19 16:40 55 L 2 L 99 09/16/19 16:31 56 L 12 104/45 L 99 09/16/19 16:30 56 L 8 L 99 09/16/19 16:20 60 10 L 100 09/16/19 16:17 29.9 C L 60 12 133/59 L 100 09/16/19 16:16 58 L 16 133/59 L 99 09/16/19 16:10 66 14 99 09/16/19 16:04 67 25 H 100 09/16/19 16:02 68 19 165/62 H 100 Code Status & VTE Plan VTE Prophylaxis Plan VTE Prophylaxis will be ordered: Yes PG Care Time/CCT Total # of Minutes Spent Total Time Spent with Patient: Total time spent is greater than 50% in coordination of care (as documented) at patient's floor/unit and/or counseling patient: Coding Level of Care Code 44755 Initial Inpt Care Lvl 3 Diagnoses Fall W19.XXXA Pneumonia J18.9 L1 vertebral fracture S32.019A Hypothermia T68.XXXA Leg swelling M79.89 Breast lesion N64.9 DVT prophylaxis Z29.9
[2019-09-16] MEDS ORDERED: VANCOMYCIN CONSULT ACTIVE PRN (20:37)
[2019-09-16] MEDS ORDERED: ACETAMINOPHEN 325 MG TAB PO PRN (20:37)
[2019-09-16] MEDS ORDERED: MoRPHine SULFATE 2 MG/ML CARP IV PRN (20:37)
[2019-09-16] MEDS ORDERED: ONDANSETRON INJ 2 MG/ML 2 ML VIAL IV PRN (20:37)
[2019-09-16] MEDS ORDERED: LACTATED RINGER'S 1,000 ML IV SCH (20:37)
--- NOTE | 2019-09-16 20:55 | Pharmacy Report ---
Pharmacy Abx Dose Short Note - Date of Service September 16, 2019 - Assessment & Plan Assessment 89 year old F receiving vancomycin for treatment of breast lesion. Plan Vancomycin * loading dose is vancomycin 2000 mg (21 mg/kg) IV x 1 Patient meets criteria for vancomycin AUC dosing nomogram * AUC/HILARY is the preferred PK/PD target for vancomycin * Target AUC/HILARY = 400-600 * AUC guided dosing is effective and associated with decreased risk of nephrotoxicity Pharmacy will continue to follow and will adjust dose/frequency as necessary. Thank you.
[2019-09-16] MEDS ORDERED: cefTRIAXone SODIUM 2,000 MG in DEXTROSE 5% 50 ML IV SCH (21:00)
[2019-09-16] MEDS ORDERED: VANCOMYCIN HCL 2,000 MG in SODIUM CHLORIDE 0.9% 500 ML IV ONE (21:30)
[2019-09-16] MEDS ORDERED: VANCOMYCIN HCL 1,250 MG in SODIUM CHLORIDE 0.9% 250 ML IV ONE (21:30)
[2019-09-16] MEDS ORDERED: AZITHROMYCIN 500 MG in DEXTROSE 5% 250 ML IV ONE (22:00)
[2019-09-16] MEDS: HEPARIN SOD 5,000 UNIT/0.5 ML VIAL SQ SCH (22:34)
[2019-09-16] MEDS ORDERED: PNEUMOCOCCAL ADMINISTRATION CHARGE ONE (23:17)
[2019-09-16] MEDS ORDERED: PNEUMOCOCCAL POLYSACCHARIDES 25 MCG/0.5 ML VIAL/SYR IM ONE (23:17)
[2019-09-17] MEDS ORDERED: SODIUM CHLORIDE 0.9% 500 ML IV SCH (00:15)
[2019-09-17] MEDS ORDERED: ALBUMIN 25% 50 ML IV ONE (01:11)
[2019-09-17] MEDS ORDERED: SODIUM CHLORIDE 0.9% 1000ML 500 ML IV ONE (01:16)
[2019-09-17] MEDS ORDERED: FUROSEMIDE 20 MG in SYRINGE 0 ML IV ONE (05:25)
--- NOTE | 2019-09-17 06:35 | XRay Report ---
XR chest 1V portable CLINICAL HISTORY: tachypnea COMPARISON STUDY: Chest CT and chest radiograph September 16, 2019. FINDINGS: There is no pneumothorax. Small bilateral pleural effusions are noted. Incidental note is m sonya of S-shaped scoliosis of the thoracolumbar spine. Mild to moderate cardiomegaly is noted. Hazy ri ght lower lung opacity is increased. Right apical opacity is unchanged. There is mild left basilar op acity. There is no evidence for pulmonary edema. IMPRESSION: 1. Small bilateral pleural effusions. No pneumothorax. 2. Increase in bilateral airspace opacities. ACT 112: Negative or not required by law. Electronically signed by: Seun Post M.D. 09/17/2019 6:34 AM
[2019-09-17 07:19] LABS: Hematocrit (blood only) 26.2 % (37-47); Mean Corpuscular Hemoglobin 28.6 pg (25-34); Mean Corpuscular Hgb Conc 34.4 g/dL (32-36); Mean Corpuscular Volume 83.2 fL (80-100); Mean Platelet Volume 10.1 fL (7.4-10.4); Nucleated RBC # (auto) 0.02 K/uL (0-0); Nucleated RBC % (auto) 0.2 %; Platelet Count 232 K/uL (130-400); RDW Coefficient of Variation 15.5 % (11.5-14.5); RDW Standard Deviation 47.2 fL (36.4-46.3); Red Blood Count 3.15 M/uL (4.2-5.4); White Blood Count 10.96 K/uL (4.8-10.8)
[2019-09-17 07:48] LABS: BUN Creatinine Ratio 49.9 (10-20); Calcium 8.5 mg/dl (8.5-10.1); Creatinine Clr Calc Pharmacy 52.4 ml/min; Est GFR (African American) 94.3; Est GFR (Non-African American) 81.4; Magnesium 1.7 mg/dl (1.8-2.4); Potassium 4.1 mmol/L (3.5-5.1)
[2019-09-17 07:51] LABS: Phosphorus 3.7 mg/dl (2.5-4.9)
[2019-09-17] MEDS ORDERED: DEXTROSE 50% 50 ML SYRINGE IV ONE (08:34)
[2019-09-17] MEDS: HEPARIN SOD 5,000 UNIT/0.5 ML VIAL SQ SCH (08:49)
[2019-09-17] MEDS: MAGNESIUM SULFATE / D5W 1 GM/100 ML BAG IV SCH ×2 (09:21→11:11)
--- NOTE | 2019-09-17 09:38 | Orthopedic Consultation ---
Date of Consultation September 17, 2019 Assessment & Plan (1) Closed compression fracture of L1 vertebra: At this time I am going to obtain a specific CAT scan of the lumbar spine for further detail to the fracture pattern at L1. It is my understanding she wants to be treated without any surgical intervention. Most likely a TLSO brace when out of bed would be the best plan of care. Present on Admission?: Yes History of Present Illness Reason for Consultation: Lumbar fracture Attending Physician: Puma Singletary MD History of Present Illness This is an 89-year-old female who presents the emergency room yesterday apparently after a fall. Imaging at that time diagnosed at L1 horizontal fracture. This morning she is arousable. She does not communicate verbally. She indicates that she has sensation in her legs and is not in pain at this time. Allergies Allergy/AdvReac Type Severity Reaction Status Date / Time No Known Allergies Allergy Unverified 05/21/19 13:22 Home Medications Home Medications Medication Instructions Recorded Confirmed Type No Known Home Medications 07/17/18 09/16/19 History Patient History Medical History (Updated 09/16/19 @ 21:10 by Ashish Dubon MD) Breast lesion Closed fracture of right hip (Inactive) Closed right femoral fracture (Inactive) DVT prophylaxis Electrolyte abnormality Fall Pubic ramus fracture Scoliosis Thrombocytosis (Inactive) Surgical History H/O removal of cyst breast cyst removal Family History Other Family history non-contributory Social History Preferred Language: [place] Citizen Communication Ability: Effective Case Resolution Specialist Required: No Beliefs That Will Affect Care: None marital status: / Current Living Situation: Alone Feels Safe at Home: Yes Smoking Status: Never smoker Second Hand Exposure: No ; Hx Alcohol Use: Yes Alcohol type: wine Hx Substance Use: No Physical Exam Physical Exam: On exam she is able to move her feet upon request. She is however unable to communicate this morning. Results & Data ([facility]) Vital Signs (Past 12 Hours) Vital Signs Temp Pulse Pulse Resp BP BP Pulse Ox 09/17/19 07:43 36.7 C 99 H 20 91/45 L 92 09/17/19 06:28 36.8 C 106 H 28 H 108/74 94 09/17/19 06:23 22 96 09/17/19 05:31 36.9 C 107 H 40 H 121/60 96 09/17/19 05:12 110 H 93 09/17/19 05:10 37.1 C 107 H 40 H 113/56 L 86 L 09/17/19 03:20 36.9 C 102 H 22 92/49 L 91 09/17/19 02:34 36.5 C 96 H 18 92/57 L 92 09/17/19 02:02 36.0 C L 09/17/19 01:30 36.1 C L 89 22 77/33 L 92 09/17/19 00:59 35.8 C L 82/43 L 09/17/19 00:28 35.1 C L 85/47 L 09/16/19 23:57 34.8 C L 75/37 L 09/16/19 23:25 83 20 85/45 L 95 (1) Closed compression fracture of L1 vertebra Encounter type: initial encounter Qualified Code(s): S32.010A - Wedge compression fracture of first lumbar vertebra, initial encounter for closed fracture
[2019-09-17] MEDS ORDERED: VANCOMYCIN HCL 1,000 MG in SODIUM CHLORIDE 0.9% 250 ML IV SCH (10:00)
[2019-09-17] MEDS ORDERED: VANCOMYCIN HCL 750 MG in SODIUM CHLORIDE 0.9% 250 ML IV SCH (10:00)
--- NOTE | 2019-09-17 10:14 | Palliative Care Consultation ---
Date of Consultation September 17, 2019 Assessment & Plan (1) Goals of care, counseling/discussion: -89 year old female patient with PMH aortic valve sclerosis, fall and hip fracture in July 2018 s/p ORIF, and apparently a known breast lesion without further workup, presented to the hospital yesterday after her friends found her face down in her home after a presumed fall. L1 fracture seen. Ortho consulted-- Dr. Singh is obtaining a more specific CT scan and states he will likely recommend a TLSO brace for her. Patient also noted to have a 7cm fungating right breast mass on CT chest. This mass was previously noted, but it seems that patient did not seek further workup per her preference. Patient's friend, Laurie, who is apparently also her POA states that patient does not want aggressive treatment for this breast mass, and likely would not want surgery either. CT chest shows possible pneumonia. She was hypothermic and has elevated WBC as well. Patient is on several abx. Palliative care is consulted to discuss goals of care. -Patient to be seen by palliative MD this afternoon. Per documentation, patient is not very verbally responsive, but is awake. -Attempted to call patient's POA, Laurie Miranda ([phone]), but no answer. -Per H&P, Laurie stated to the admitting physician that patient would not want aggressive treatment for the breast mass and likely would not want surgical intervention for her spinal fracture. -Waiting for further recs from ortho. -If patient is able to come around and participate in PT/OT, may need rehab after hospitalization. She may also be able to participate in conversation about goals of care and how she would want to proceed with her medical conditions. -Palliative team will continue to follow along and provide support and discuss of [facility]. (2) Closed compression fracture of L1 vertebra: Encounter type: initial encounter Qualified Code(s): S32.010A - Wedge compression fracture of first lumbar vertebra, initial encounter for closed fracture (3) Breast mass, right: (4) Fall: Encounter type: initial encounter Qualified Code(s): W19.XXXA - Unspecified fall, initial encounter Supervising Physician Co-Signing Physician Notes Chart reviewed, patient seen and examined. Collaborated with [facility] as well as attending physician. Patient lives alone and was found down by a friend, downtime approximately 6 hours. Patient was found face down-has extensive bruising of entire face. No facial fractures noted on CT. PE: Patient difficult to arouse, appears frail. Was able to shake her head no when asked if she was in pain. Patient was otherwise nonverbal, dozes off quickly. HEENT: EOMI, hearing appears to be within normal limits Respirations: Unlabored-coarse breath sounds bilaterally right greater than left with some upper airway noises transmitted CV: Regular rate, 3+ lower extremity edema Chest: OptiForm dressing over right chest-no staining Abdomen: Soft, nontender Neuro: Somnolent Agree with above note, assessment and plan as per [facility] will continue to follow and assist patient and her POA with medical decision making. History of Present Illness Attending Physician: Puma Singletary MD History of Present Illness This 89 year old female patient with PMH aortic valve sclerosis, fall and hip fracture in July 2018 s/p ORIF, and apparently a known breast lesion without further workup, presented to the hospital yesterday after her friends found her face down in her home after a presumed fall. L1 fracture seen. Ortho consulted-- Dr. Singh is obtaining a more specific CT scan and states he will likely recommend a TLSO brace for her. Patient also noted to have a 7cm fungating right breast mass on CT chest. This mass was previously noted, but it seems that patient did not seek further workup per her preference. Patient's friend, Laurie, who is apparently also her POA states that patient does not want aggressive treatment for this breast mass, and likely would not want surgery either. CT chest shows possible pneumonia. She was hypothermic and has elevated WBC as well. Patient is on several abx. Palliative care is consulted to discuss goals of care. Thank you kindly for this consult. Palliative care team will follow as needed. Allergies Allergy/AdvReac Type Severity Reaction Status Date / Time No Known Allergies Allergy Unverified 05/21/19 13:22 Home Medications Home Medications Medication Instructions Recorded Confirmed Type No Known Home Medications 07/17/18 09/16/19 History Patient History Medical History (Updated 09/17/19 @ 10:09 by NEAL Miller) Breast lesion Closed fracture of right hip (Inactive) Closed right femoral fracture (Inactive) DVT prophylaxis Electrolyte abnormality Fall Pubic ramus fracture Scoliosis Thrombocytosis (Inactive) Surgical History H/O removal of cyst breast cyst removal Family History Other Family history non-contributory Social History Preferred Language: [place] Island[place] Communication Ability: Effective Cake Winder Required: No Beliefs That Will Affect Care: None marital status: / Current Living Situation: Alone Feels Safe at Home: Yes Smoking Status: Never smoker Second Hand Exposure: No ; Hx Alcohol Use: Yes Alcohol type: wine Hx Substance Use: No Results & Data Vital Signs (Past 12 Hours) Vital Signs Temp Pulse Pulse Resp BP BP Pulse Ox 09/17/19 07:43 36.7 C 99 H 20 91/45 L 92 09/17/19 06:28 36.8 C 106 H 28 H 108/74 94 09/17/19 06:23 22 96 09/17/19 05:31 36.9 C 107 H 40 H 121/60 96 09/17/19 05:12 110 H 93 09/17/19 05:10 37.1 C 107 H 40 H 113/56 L 86 L 09/17/19 03:20 36.9 C 102 H 22 92/49 L 91 09/17/19 02:34 36.5 C 96 H 18 92/57 L 92 09/17/19 02:02 36.0 C L 09/17/19 01:30 36.1 C L 89 22 77/33 L 92 09/17/19 00:59 35.8 C L 82/43 L 09/17/19 00:28 35.1 C L 85/47 L 09/16/19 23:57 34.8 C L 75/37 L 09/16/19 23:25 83 20 85/45 L 95 Coding Level of Care Code 13066 Inpt Consult Level 3 Diagnoses Goals of care, counseling/discussion Z71.89 Closed compression fracture of L1 vertebra S32.010A Encounter type: initial encounter Breast mass, right N63.10 Fall W19.XXXA Encounter type: initial encounter Time Spent (min) 70 Time Spent Midlevel A total of 50 minutes spent by this LEAD CARE MANAGER in reviewing chart, speaking with attending and palliative physicians as well as IDT regarding patient condition and plan of care. Attending Spent 20 minutes at bedside assessing patient's current condition as well as pain level in addition to the 50 minutes spent by [facility] for total of 70 minutes.
--- NOTE | 2019-09-17 10:44 | CT Scan Report ---
CT OF THE LUMBAR SPINE CLINICAL HISTORY: Lumbar spine fracture. COMPARISON STUDY: CT of the abdomen and pelvis September 16, 2019. TECHNIQUE: Helical axial images of the lumbar spine were obtained. Sagittal and coronal reconstruct ions were viewed. Automated exposure control was utilized for the study. A dose lowering technique was utilized adhering to the principles of ALARA. FINDINGS: For purposes of numbering on this exam, the L5-S1 disc space is assigned to axial image 299 of 361. Note is made of mild shaped scoliosis of the lumbar spine. There is grade I anterolisthesis of L3 on L4 and L4 and L5 due to facet arthrosis. There is severe multilevel facet arthrosis. There i s severe disc space narrowing with vacuum disc phenomenon and osteophytosis at L3-L4 and L4-L5. The c entral canal and neural foramen are suboptimally assessed by CT. However there is suspected moderate to severe central canal stenosis at L3-L4 and L4-L5. Multilevel neural foraminal stenosis is also not ed, most pronounced at the L4-L5 level. Note is made of an acute horizontal fracture along the inferi or endplate of L1 with 40% loss of vertebral body height centrally. No extension into the posterior e lements is noted. There is minimal retropulsion without significant central canal stenosis at this le rhys. No additional acute lumbar spine fractures are noted. Mild concavity of the inferior endplate of T12 is likely chronic. Bilateral pleural effusions, right larger left, are partially imaged. These i ncrease in size since prior head CT. There is an indeterminate 2.3 cm sclerotic focus within the righ t sacral ala. A few adjacent smaller sclerotic foci are noted. These are indeterminate. The enteric e calos is incidentally noted. This is shown on prior CT. There is contrast within the kidneys and colle cting systems from recent contrast-enhanced CT. IMPRESSION: 1. Acute horizontal fracture along the inferior endplate of L1 with 40% loss of vertebral body height centrally. Minimal retropulsion without central canal stenosis at this level. No extension into the posterior elements. No additional acute lumbar spine fractures. 2. Severe multilevel degenerative disc disease and facet arthrosis. Suspected moderate to severe cent ral canal stenosis at L3-L4 and L4-L5, suboptimally assessed by CT. 3. A few indeterminate sclerotic foci within the right sacral ala that measure up to 2.3 cm. 4. Increasing bilateral pleural effusions. ACT 112: Negative or not required by law. Electronically signed by: Seun Post M.D. 09/17/2019 10:42 AM
--- NOTE | 2019-09-17 15:51 | Hospitalist Progress Note ---
Date of Service September 17, 2019 Assessment & Plan (1) Fall: Presents after a fall. Likely only down for ~6 hours per friends' estimates. - L1 fracture as below - Monitor CK -> Improved from 1000 to 300. - When/if able with do PT/OT (2) Hyponatremia: Likely low solute vs. SIADH from lung issue. - Will check urine osms with AM labs. - Monitor (3) Leg swelling: Appears to be somewhat chronic as it is listed in her PCP note from 04/2019. At that time she declined further work-up. - Likely related to heart failure as the patient became volume overloaded with IV fluids and then required Lasix - Defer echo or further intervention for patient's wishes. (4) Pneumonia: CT chest on 09/15 shows apical opacity with R>L. Hypothermic and elevated WBC. Will treat as community-acquired pneumonia. - Treat with ceftriaxone and azithromycin - Monitor breathing -> Very bad overnight with some need for BiPap. (5) L1 vertebral fracture: CT a/p shows a horizontal L1 vertebral body cleavage fracture with approximately 30% vertebral body loss in height. Appears neurologically intact at this time with light touch sensation intake and some movement of the toes. - Bedrest - Pain control - Likely TLSO brace (6) Hypothermia: Likely due to being on the ground for some time. - Nilam hugger - TSH (7) Breast lesion: 7cm fungating breast mast noted on exam and on CT scan. This was noted in her prior discharge summary from over a year ago without the patient following up with health care provider. - Palliative care consult -> Laurie, friend & POA, agrees she would not want intensive treatment for this. - Given erythema and purulence, will treat with antibiotics. - Wound care following - Pain control (8) DVT prophylaxis: Heparin 5,000 units SQ Q12h Admission and Anticipated Discharge Date Admission Date: September 16, 2019 Subjective Unresponsive today. Able to wake up with verbal stimulus, but then falls asleep. Review of Systems Review of Systems: Unobtainable due to cognitive status Physical Exam Constitutional: WD/WN, vitals as above + acute distress, + frail appearing and + disheveled Eyes: EOM intact bilaterally; no conjunctival abnormality ENMT: external ear and nose normal, oropharynx normal Neck: trachea midline, no thyromegaly normal visual inspection Respiratory: normal respiratory effort, lungs clear to auscultation no respiratory distress Cardiovascular: Rate/Rhythm: regular rate and regular rhythm Heart Sounds: normal S1 and normal S2 Extremities: + edema (Left 2+, right 1+) Chest (Breasts): Breast: + breast mass (Fungating right breast mass with purulence and erythema) Gastrointestinal (Abdomen): Inspection/Auscultation: abdomen normal to inspection; abdomen not distended Percussion/Palpation: abdomen soft; abdomen nontender Musculoskeletal: no cyanosis or clubbing, extremities motor strength 5/5 Skin: Trauma: + evidence of skin trauma, + abrasion (Multiple abrasions and contusions) and + periorbital ecchymosis Neurologic: moves all extremities and awake Psychiatric: Orientation: oriented to person; + not oriented to place and + not oriented to time Results & Data Results & Data ([facility]) Vital Signs (Past 12 Hours) Vital Signs Temp Pulse Pulse Resp BP Pulse Ox 09/17/19 15:16 36.3 C L 81 23 108/55 L 09/17/19 11:49 36.3 C L 79 18 96/48 L 97 09/17/19 08:00 107 H 09/17/19 07:43 36.7 C 99 H 20 91/45 L 92 09/17/19 06:28 36.8 C 106 H 28 H 108/74 94 09/17/19 06:23 22 96 09/17/19 05:31 36.9 C 107 H 40 H 121/60 96 09/17/19 05:12 110 H 93 09/17/19 05:10 37.1 C 107 H 40 H 113/56 L 86 L PG Care Time/CCT Total # of Minutes Spent Total Time Spent with Patient: Total time spent is greater than 50% in coordination of care (as documented) at patient's floor/unit and/or counseling patient: Coding Level of Care Code 08959 Subseq Hosp Care Lvl 3 Diagnoses Fall W19.XXXA Hyponatremia E87.1 Leg swelling M79.89 Pneumonia J18.9 L1 vertebral fracture S32.019A Hypothermia T68.XXXA Breast lesion N64.9 DVT prophylaxis Z29.9
--- NOTE | 2019-09-17 16:50 | Electrocardiogram Report ---
Test Reason : Blood Pressure : / mmHG Vent. Rate : 062 BPM Atrial Rate : 062 BPM P-R Int : 168 ms QRS Dur : 100 ms QT Int : 482 ms P-R-T Axes : 090 071 092 degrees QTc Int : 489 ms Sinus rhythm with occasional Premature ventricular complexes and Premature atrial complexes Left ventricular hypertrophy with repolarization abnormality Abnormal ECG When compared with ECG of 16-JUL-2018 22:19, Premature ventricular complexes are now Present Premature atrial complexes are now Present Left bundle branch block is no longer Present Confirmed by Bernard Elliott ([id number]) on 09/17/2019 4:50:00 PM Referred By: REFERRED SELF Confirmed By:Bernard Elliott
[2019-09-17] MEDS ORDERED: AZITHROMYCIN 250 MG in DEXTROSE 5% 250 ML IV SCH (22:00)
[2019-09-18] MEDS ORDERED: VANCOMYCIN TROUGH ONE (09:30)
--- NOTE | 2019-09-18 12:33 | Hospitalist Progress Note ---
Date of Service September 18, 2019 Assessment & Plan (1) Comfort measures only status: On 09/16, I had a discussion with Laurie Miranda, the patient's POA. She felt that the patient would not want aggressive medical treatment and would only want to be comfortable and try to return home. - Made comfort care - Discussed with RN -> No labs, minimal vitals, no fingersticks. - Presently feels quite comfortable; continue with morphine and acetaminophen as needed (2) Fall: Presents after a fall. Likely only down for ~6 hours per friends' estimates. - L1 fracture as below - Monitor CK -> Improved from 1000 to 300. No longer monitoring. - When/if able with do PT/OT (3) Hyponatremia: Likely low solute vs. SIADH from lung issue. - Made comfort care at this time; no further monitoring. (4) Leg swelling: Appears to be somewhat chronic as it is listed in her PCP note from 04/2019. At that time she declined further work-up. - Likely related to heart failure as the patient became volume overloaded with IV fluids and then required Lasix. - Defer echo or further intervention for patient's wishes. (5) Pneumonia: CT chest on 09/15 shows apical opacity with R>L. Hypothermic and elevated WBC. Will treat as community-acquired pneumonia. - Treated with ceftriaxone and azithromycin, then stopped for comfort care per discussion with POA. (6) L1 vertebral fracture: CT a/p shows a horizontal L1 vertebral body cleavage fracture with approximately 30% vertebral body loss in height. Appears neurologically intact at this time with light touch sensation intake and some movement of the toes. - Bedrest - Pain control - Likely TLSO brace (7) Hypothermia: Likely due to being on the ground for some time. - Resolved initially - Monitor (8) Breast lesion: 7cm fungating breast mass noted on exam and on CT scan. This was noted in her prior discharge summary from over a year ago without the patient following up with health care provider. - Palliative care consult -> Laurie, friend & POA, agrees she would not want intensive treatment for this. - Given erythema and purulence, treated initially with antibiotics. Now comfort care. - Wound care following - Pain control (9) DVT prophylaxis: None for comfort status Admission and Anticipated Discharge Date Admission Date: September 16, 2019 Subjective Wakes up easily for me this morning, but not oriented. Only really willing to minimize her symptoms saying she is pain-free and that "I'll be alright in a few hours. I'm just a bit sleepy." Physical Exam Constitutional: WD/WN, vitals as above + acute distress, + frail appearing and + disheveled Eyes: EOM intact bilaterally; no conjunctival abnormality ENMT: external ear and nose normal, oropharynx normal Neck: trachea midline, no thyromegaly normal visual inspection Respiratory: normal respiratory effort, lungs clear to auscultation no respiratory distress Cardiovascular: Rate/Rhythm: regular rate and regular rhythm Heart Sounds: normal S1 and normal S2 Extremities: + edema (Left 2+, right 1+) Chest (Breasts): Breast: + breast mass (Fungating right breast mass with purulence and erythema) Gastrointestinal (Abdomen): Inspection/Auscultation: abdomen normal to inspection; abdomen not distended Percussion/Palpation: abdomen soft; abdomen nontender Musculoskeletal: no cyanosis or clubbing, extremities motor strength 5/5 Skin: Trauma: + evidence of skin trauma, + abrasion (Multiple abrasions and contusions) and + periorbital ecchymosis Neurologic: moves all extremities and awake Psychiatric: Orientation: oriented to person; + not oriented to place and + not oriented to time PG Care Time/CCT Total # of Minutes Spent Total Time Spent with Patient: Total time spent is greater than 50% in coordination of care (as documented) at patient's floor/unit and/or counseling patient: Coding Level of Care Code 91089 Subseq Hosp Care Lvl 2 Diagnoses Comfort measures only status Z51.5 Fall W19.XXXA Hyponatremia E87.1 Leg swelling M79.89 Pneumonia J18.9 L1 vertebral fracture S32.019A Hypothermia T68.XXXA Breast lesion N64.9 DVT prophylaxis Z29.9
[2019-09-18] MEDS: ATROPINE SULFATE 1% OP SOLN 5 ML BTL PO PRN ×2 (17:56→21:58)
[2019-09-19] MEDS: ATROPINE SULFATE 1% OP SOLN 5 ML BTL PO PRN (10:19)
--- NOTE | 2019-09-19 15:47 | Hospitalist Progress Note ---
Date of Service September 19, 2019 Assessment & Plan (1) Comfort measures only status: On 09/16, I had a discussion with Laurie Miranda, the patient's POA. She felt that the patient would not want aggressive medical treatment and would only want to be comfortable and try to return home. - Made comfort care - Discussed with RN -> No labs, minimal vitals, no fingersticks. - Presently feels quite comfortable; continue with morphine and acetaminophen as needed. - More tired today. Not eating or drinking much. If she does ok for another day, likely determine placement for hospice. (2) Fall: Presents after a fall. Likely only down for ~6 hours per friends' estimates. - L1 fracture as below - Monitor CK -> Improved from 1000 to 300. No longer monitoring. (3) Hyponatremia: Likely low solute vs. SIADH from lung issue. - Made comfort care at this time; no further monitoring. (4) Leg swelling: Appears to be somewhat chronic as it is listed in her PCP note from . At that time she declined further work-up. - Likely related to heart failure as the patient became volume overloaded with IV fluids and then required Lasix. - Defer echo or further intervention for patient's wishes. (5) Pneumonia: CT chest on 09/15 shows apical opacity with R>L. Hypothermic and elevated WBC. Will treat as community-acquired pneumonia. - Treated with ceftriaxone and azithromycin, then stopped for comfort care per discussion with POA. (6) L1 vertebral fracture: CT a/p shows a horizontal L1 vertebral body cleavage fracture with approximately 30% vertebral body loss in height. Appears neurologically intact at this time with light touch sensation intake and some movement of the toes. - Bedrest - Pain control - Likely TLSO brace (7) Hypothermia: Likely due to being on the ground for some time. - Resolved initially - Monitor (8) Breast lesion: 7cm fungating breast mass noted on exam and on CT scan. This was noted in her prior discharge summary from over a year ago without the patient following up with health care provider. - Palliative care consult -> Laurie, friend & POA, agrees she would not want intensive treatment for this. - Given erythema and purulence, treated initially with antibiotics. Now comfort care. - Wound care following - Pain control (9) DVT prophylaxis: None for comfort status Admission and Anticipated Discharge Date Admission Date: September 16, 2019 Subjective Very lethargic this morning. Harder to wake up. Still denies any concerns. Reports no fevers/chills, chest pain, shortness of breath, abdominal pain, nausea, or vomiting. Physical Exam Constitutional: WD/WN, vitals as above + acute distress, + frail appearing and + disheveled Eyes: EOM intact bilaterally; no conjunctival abnormality ENMT: external ear and nose normal, oropharynx normal Neck: trachea midline, no thyromegaly normal visual inspection Respiratory: normal respiratory effort, lungs clear to auscultation no respiratory distress Cardiovascular: Rate/Rhythm: regular rate and regular rhythm Heart Sounds: normal S1 and normal S2 Extremities: + edema (Left 2+, right 1+) Chest (Breasts): Breast: + breast mass (Fungating right breast mass with purulence and erythema) Gastrointestinal (Abdomen): Inspection/Auscultation: abdomen normal to inspection; abdomen not distended Percussion/Palpation: abdomen soft; abdomen nontender Musculoskeletal: no cyanosis or clubbing, extremities motor strength 5/5 Skin: Trauma: + evidence of skin trauma, + abrasion (Multiple abrasions and contusions) and + periorbital ecchymosis Neurologic: moves all extremities and awake Psychiatric: Orientation: oriented to person; + not oriented to place and + not oriented to time PG Care Time/CCT Total # of Minutes Spent Total Time Spent with Patient: Total time spent is greater than 50% in coordination of care (as documented) at patient's floor/unit and/or counseling patient: Coding Level of Care Code 31484 Subseq Hosp Care Lvl 2 Diagnoses Comfort measures only status Z51.5 Fall W19.XXXA Hyponatremia E87.1 Leg swelling M79.89 Pneumonia J18.9 L1 vertebral fracture S32.019A Hypothermia T68.XXXA Breast lesion N64.9 DVT prophylaxis Z29.9
--- NOTE | 2019-09-20 15:34 | Discharge Summary ---
Date of Service September 20, 2019 Admission HPI Per Admitting Provider 89yo F w/ hx of aortic valve sclerosis and prior fall with subsequent hip fracture who presents after being found down by friend. Per POA and friend, Laurie, she was seen well yesterday. She had had a fall about 1 week prior, but did not seek help and declined intervention by her friends. Per Laurie, she is very private by nature and reluctant to seek medical assistance. She was found by her friends this afternoon face down in her dining room. The friends found a sandal outside her house and feel she may have fallen shortly after coming inside this morning after feeding the birds. On admission, she is awake and oriented to herself, but unable to give any recent history or recount events. On questioning, she will only repeat that she is "fine." She denies any back pain or any leg pain, denies shortness of breath, denies any other symptoms, again only repeating she feels "fine" and "[is] fine" when asked about particular complaints. Principal Diagnosis Fall Discharge Exam Constitutional WD/WN, vitals as above + acute distress, + frail appearing and + disheveled Eyes EOM intact bilaterally; no conjunctival abnormality ENMT external ear and nose normal, oropharynx normal Neck trachea midline, no thyromegaly normal visual inspection Respiratory normal respiratory effort, lungs clear to auscultation no respiratory distress Cardiovascular Rate/Rhythm: regular rate and regular rhythm Heart Sounds: normal S1 and normal S2 Extremities: + edema (Left 2+, right 1+) Chest (Breasts) Breast: + breast mass (Fungating right breast mass with purulence and erythema) Gastrointestinal (Abdomen) Inspection/Auscultation: abdomen normal to inspection; abdomen not distended Percussion/Palpation: abdomen soft; abdomen nontender Musculoskeletal no cyanosis or clubbing, extremities motor strength 5/5 Skin Trauma: + evidence of skin trauma, + abrasion (Multiple abrasions and contusions) and + periorbital ecchymosis Neurologic moves all extremities and awake Psychiatric Orientation: oriented to person; + not oriented to place and + not oriented to time Discharge Data Allergies Allergy/AdvReac Type Severity Reaction Status Date / Time No Known Allergies Allergy Unverified 05/21/19 13:22 Consultations 09/16/19 17:54 ED Decision to Admit Stat 05/28/20 20:37 Consult Case Management - Discharge Planning Routine Consult Orthopedic Surgery Routine Consult Palliative Care Routine Ordered Studies 09/16/19 16:09 CT abd pelvis IV con only Stat CT cervical spine wo con Stat CT chest w con Stat CT head/brain wo con Stat 09/17/19 09:04 CT lumbar spine wo con Routine Hospital Course (1) Comfort measures only status: Per documentation, patient at 10:15pm on 09/19/2019. - I did not pronounce the patient as I was not on service at the time. (2) Fall: Presents after a fall. Likely only down for ~6 hours per friends' estimates. - L1 fracture as below - Monitor CK -> Improved from 1000 to 300. No longer monitoring. (3) Hyponatremia: Likely low solute vs. SIADH from lung issue. - Made comfort care at this time; no further monitoring. (4) Leg swelling: Appears to be somewhat chronic as it is listed in her PCP note from 04/2019. At that time she declined further work-up. - Likely related to heart failure as the patient became volume overloaded with IV fluids and then required Lasix. - Defer echo or further intervention for patient's wishes. (5) Pneumonia: CT chest on 09/15 shows apical opacity with R>L. Hypothermic and elevated WBC. Will treat as community-acquired pneumonia. - Treated with ceftriaxone and azithromycin, then stopped for comfort care per discussion with POA. (6) L1 vertebral fracture: CT a/p shows a horizontal L1 vertebral body cleavage fracture with approximately 30% vertebral body loss in height. Appears neurologically intact at this time with light touch sensation intake and some movement of the toes. - Bedrest - Pain control - Likely TLSO brace (7) Hypothermia: Likely due to being on the ground for some time. - Resolved initially - Monitor (8) Breast lesion: 7cm fungating breast mass noted on exam and on CT scan. This was noted in her prior discharge summary from over a year ago without the patient following up with health care provider. - Palliative care consult -> Laurie, friend & POA, agrees she would not want intensive treatment for this. - Given erythema and purulence, treated initially with antibiotics. Now comfort care. - Wound care following - Pain control (9) DVT prophylaxis: None for comfort status Total Time Total Time Spent Total Time Spent (In Minutes): 35 Discharge Plan Discharge Items Patient Disposition: Reason For Visit: FALL,HYPOTHERMIA Follow-up/Referrals: Soy Martin MD [Primary Care Provider] - Stand-Alone Forms: [facility] Admission Data Admit Date/Time: 09/16/19 18:45 Other DC Date/Time DO NOT enter until pt leaves facility: 09/19/19 20:30 Coding Level of Care Code D/C Day Management >30 mins Diagnoses Comfort measures only status Z51.5 Fall W19.XXXA Hyponatremia E87.1 Leg swelling M79.89 Pneumonia J18.9 L1 vertebral fracture S32.019A Hypothermia T68.XXXA Breast lesion N64.9 DVT prophylaxis Z29.9
--- NOTE | 2019-09-20 15:38 | Death Pronouncement Note ---
Date of Service September 20, 2019 Pronouncement Note Admission Date Admission Date: September 16, 2019 Date and Time of Date of : 09/19/19 Time of : 20:15 PCOD Preliminary cause of : Fall Contributing Factors (1) Comfort measures only status: (2) Fall: (3) Hyponatremia: (4) Leg swelling: (5) Pneumonia: (6) L1 vertebral fracture: (7) Hypothermia: (8) Breast lesion: (9) DVT prophylaxis: Additional Data Confirmation of : no pulse, no respirations and no heart sounds Attending/PCP notified?: Yes Attending physician: Puma Singletary MD Was code activated?: No Autopsy requested?: No lightout examiner notified?: No Coding Level of Care Code D/C Day Management >30 mins Diagnoses Comfort measures only status Z51.5 Fall W19.XXXA Hyponatremia E87.1 Leg swelling M79.89 Pneumonia J18.9 L1 vertebral fracture S32.019A Hypothermia T68.XXXA Breast lesion N64.9 DVT prophylaxis Z29.9
== END 2019-09-19 20:30 | disposition expired | DRG 551 ==
LOC: ED 15:51 → 3E 18:45 → 2S 09-17 06:21 → 2W 09-17 16:16